=== PATIENT | male | born 1940 | race Caucasian/White ===

== ENCOUNTER 2020-02-09 11:51 | Emergency (ER) | payer MEDICARE, SELFPAY ==
[2020-02-09 12:03] VITALS: BP 142/84; PULSE 84; RESP 16; TEMP 37.1; O2SAT 98; BMI 20.5
--- NOTE | 2020-02-09 12:29 | ED_ITS ---
HPI - General Adult General Chief complaint: General Medical Stated complaint: DEHYDRATION Time Seen by Provider: 02/09/20 12:29 Source: patient and family (Daughter) Limitations: other (Alzheimer's) History of Present Illness HPI narrative: patient is an 79-year-old male with a past medical history of Alzheimer's, HTN and CKD presents with his daughter says the patient has not eaten any food or taken any fluids in 4 days, has not taken his medications in 3 days, is very tired and sleeping most of the day. She states the patient nor ashkan has an unsteady gait but this has gotten worse. She also states he has lost over 20 lb in the past 2-3 months. The patient's did pass away approximately 10 months ago, he states he lives with his other daughter and has no complaints about his living situation. When asked why he has not eaten, he just responds I am not hungry . Denies any pain in his mouth, throat, pain with swallowing, abdominal pain or pain with urination or defecation. Denies any COVID contacts or exposures. daughter states patient has an appointment today with Dr. Sweeney for his CKD, but they had to cancel because he came here instead complaint: dehydration Related Data Home Medications Medication Instructions Recorded Confirmed atenolol 50 mg tablet 50 mg PO DAILY 02/09/20 02/09/20 donepezil 10 mg tablet 10 mg PO BEDTIME 02/09/20 02/09/20 hydrochlorothiazide 25 mg tablet 25 mg PO DAILY 02/09/20 02/09/20 lovastatin 40 mg tablet 40 mg PO DAILY 02/09/20 02/09/20 memantine 5 mg tablet 5 mg PO BID 02/09/20 02/09/20 Previous Rx's Medication Instructions Recorded lisinopril 20 mg tablet 20 mg PO DAILY 90 Days #90 tab 01/25/20 Allergies Allergy/AdvReac Type Severity Reaction Status Date / Time No Known Allergies Allergy Verified 02/09/20 11:13 Review of Systems Review of Systems: see HPI [facility] Past Medical History Attestation statement: The following information was validated with the patient. Source: obtained from family Medical History (Updated 02/09/20 @ 17:42 by TONEY Hammonds) Dementia History of left inguinal hernia Social History Social History Alcohol intake: never Smoking Status: Former smoker Tobacco Type: Cigarette Use of substances other than those prescribed or required for medical reasons: No Advance Directives: Yes (DG) Advance Directives Information Provided: Yes Advance Directives on File: No Physical Exam Vital Signs: Vital Signs: Vital Signs Temp Pulse Resp BP Pulse Ox 02/09/20 15:51 98.4 F 68 16 143/74 H 98 02/09/20 14:00 98.5 F 78 16 165/77 H 100 02/09/20 12:03 98.7 F 84 16 142/84 H 98 Body Mass Index 20.5 Const: General: cooperative and no acute distress Nutritional Appearance: thin Orientation/consciousness: oriented to person, oriented to place and No oriented to time HENMT: Head: Yes normal to inspection General nose exam: Normal external nose present Face and sinus: Yes normal facial exam Mouth: moist mucous membranes Teeth and gingiva: other (wears dentures) Eyes: General: appearance normal, both eyes and all related structures Neck: Neck: Yes normal visual inspection, Yes full ROM and Yes supple Resp: Effort & Inspection: normal respiratory effort and able to speak in complete sentences Auscultation: clear to auscultation bilaterally Cardio: Rate: regular rate Rhythm: regular rhythm Heart sounds: S1 normal heart sound present and S2 normal heart sound present GI: Inspection: Yes normal to inspection Palpation (GI): Soft to palpation and No hepatosplenomegaly present Auscultation: Hypoactive bowel sounds present Skin: General skin exam: decreased turgor and dry skin Neuro: General: oriented to person, oriented to place and No oriented to time Extrem: General: Yes normal to inspection and Yes no pedal edema Psych: Appearance: grossly normal Speech and movement: Normal speech and movement present Affect: Sad affect present Insight: Poor insight present (Psych) ( patient kept wanting to leave, his daughter would reassure him w/success) Judgement: Poor judgement present (Psych) Course Course Course Narrative: 79-year-old male with past medical history Alzheimer's, hypertension, CKD presents with the likely dehydration as patient has not had any foods or fluids in the past 4 days, no meds in the past 3 days, sleeping a lot, past 10 months ago. Will get EKG, UA, labs, start with 1 L NS. 5:30pm spoke at length with patient's daughter, she does not want to do a bed search for [facility], she works for [employer] and is similar with processed this does not feel her father needs the level of care at this time. She states that he told her when they leave here, he will go out to breakfast with her, he stated that if he ate the crackers and laly cy here that he would not be hungry to eat after. She states she thinks he will eat an does not want him to be admitted. We will wait for the results of the UA and likely discharge with antibiotics and a follow-up with his PCP for an evaluation on depression and possible need for medication. patient's daughter understands and agrees with this plan. Medical Decision Making MDM Narrative Medical decision making narrative: patient unable to urinate, will do straight cath, states he will eat and he wants to so I gave him some crackers and laly L for a p.o. challenge. 5:30pm patient finally able to urinate, UA sent. spoke with hospital crisis team, patient has private insurance so he does not qualify for [facility]. Once we have a negative UA, then she can do a bed search for [facility] Lab Data Result diagrams: 02/09/20 13:06 02/09/20 15:50 Labs: Lab Results 02/09/20 02/09/20 02/09/20 Range/Units 13:06 13:06 13:06 WBC 7.5 (4.8-10.8) X10*3/uL RBC 3.85 L (4.60-5.80) X10*6/uL Hgb 12.8 L (14.0-18.0) g/dl Hct 37.9 L (42-52) % MCV 98.4 H (80-98) fL MCH 33.2 H (27.0-33.0) pg MCHC 33.8 (31.0-36.0) g/dl RDW 12.1 (11.0-16.0) % Plt Count 243 (160-400) X10*3/uL MPV 9.9 (9.4-12.4) fL Immature Gran % (Auto) 0.9 H (0.0-0.4) % Neut % (Auto) 72.9 (45-73) % Lymph % (Auto) 18.0 L (20-40) % [place] % (Auto) 7.1 (2-11) % Eos % (Auto) 0.7 (0-4) % Baso % (Auto) 0.4 (0-2) % Lymph # (Auto) 1.3 (1.2-4.9) X10*3/uL [place] # (Auto) 0.5 (0.1-1.2) X10*3/uL Eos # (Auto) 0.1 (0.0-0.4) X10*3/uL Baso # (Auto) 0.0 (0.0-0.2) X10*3/uL Abs Immat Gran (auto) 0.07 H (0.00-0.03) X10*3/uL Absolute Neuts (auto) 5.4 (2.0-8.3) X10*3/uL Absolute Nucleated RBC 0.000 (0.0-0.012) X10*3/uL Nucleated RBC % (auto) 0.0 (0.0-0.2) /100WBC Sodium 141 (135-145) mmol/L Potassium 4.2 (3.3-5.1) mmol/l Chloride 104 (96-108) mmol/L Carbon Dioxide 22 (22-29) mmol/L Anion Gap 19 (12-20) BUN 78 H (9-16) mg/dL Creatinine 4.62 H* (0.5-1.4) mg/dL Estim Creat Clear Calc 10.2 Estimated GFR 12 Random Glucose 134 H (60-115) mg/dL Calcium 9.3 (8.4-10.2) mg/dL Phosphorus 4.5 (2.7-4.5) mg/dL Magnesium 2.2 (1.6-2.6) mg/dL Total Bilirubin 0.9 (0.0-1.0) mg/dL Direct Bilirubin 0.4 (0.0-0.5) mg/dL AST 47 H (5-37) U/L ALT 26 (0-40) U/L Alkaline Phosphatase 75 (39-117) U/L B-Natriuretic Peptide 58 (<100) pg/mL Total Protein 7.3 (6.5-8.0) g/dL Albumin 4.4 (3.5-5.0) g/dL Urine Color Urine Appearance Urine pH (5.0-8.0) Ur Specific [place] (1.005-1.025) Urine Protein (NEG-TRACE) MG/DL Urine Glucose (UA) (NEG) MG/DL Urine Ketones (NEG) MG/DL Urine Blood (NEG) Urine Nitrite (NEG) Ur Leukocyte Esterase (NEG) 02/09/20 02/09/20 Range/Units 15:50 17:34 WBC (4.8-10.8) X10*3/uL RBC (4.60-5.80) X10*6/uL Hgb (14.0-18.0) g/dl Hct (42-52) % MCV (80-98) fL MCH (27.0-33.0) pg MCHC (31.0-36.0) g/dl RDW (11.0-16.0) % Plt Count (160-400) X10*3/uL MPV (9.4-12.4) fL Immature Gran % (Auto) (0.0-0.4) % Neut % (Auto) (45-73) % Lymph % (Auto) (20-40) % [place] % (Auto) (2-11) % Eos % (Auto) (0-4) % Baso % (Auto) (0-2) % Lymph # (Auto) (1.2-4.9) X10*3/uL [place] # (Auto) (0.1-1.2) X10*3/uL Eos # (Auto) (0.0-0.4) X10*3/uL Baso # (Auto) (0.0-0.2) X10*3/uL Abs Immat Gran (auto) (0.00-0.03) X10*3/uL Absolute Neuts (auto) (2.0-8.3) X10*3/uL Absolute Nucleated RBC (0.0-0.012) X10*3/uL Nucleated RBC % (auto) (0.0-0.2) /100WBC Sodium 143 (135-145) mmol/L Potassium 4.0 (3.3-5.1) mmol/l Chloride 110 H (96-108) mmol/L Carbon Dioxide 20 L (22-29) mmol/L Anion Gap 17 (12-20) BUN 72 H (9-16) mg/dL Creatinine 3.82 H (0.5-1.4) mg/dL Estim Creat Clear Calc 12.3 Estimated GFR 15 Random Glucose 94 (60-115) mg/dL Calcium 7.9 L (8.4-10.2) mg/dL Phosphorus (2.7-4.5) mg/dL Magnesium (1.6-2.6) mg/dL Total Bilirubin (0.0-1.0) mg/dL Direct Bilirubin (0.0-0.5) mg/dL AST (5-37) U/L ALT (0-40) U/L Alkaline Phosphatase (39-117) U/L B-Natriuretic Peptide (<100) pg/mL Total Protein (6.5-8.0) g/dL Albumin (3.5-5.0) g/dL Urine Color YELLOW Urine Appearance CLEAR Urine pH 5.5 (5.0-8.0) Ur Specific [place] 1.025 (1.005-1.025) Urine Protein TRACE (NEG-TRACE) MG/DL Urine Glucose (UA) NEG (NEG) MG/DL Urine Ketones NEG (NEG) MG/DL Urine Blood 1+ H (NEG) Urine Nitrite NEG (NEG) Ur Leukocyte Esterase NEG (NEG) ECG Data Attestation: I personally reviewed and interpreted this ECG as follows: Prior ECG tracings: available for review Interpretation: NSR rate 79 BP M MS interval 200 MS, QRS 88, QT 400, QTC 458. reviewed by Dr. Ohara as well Discharge Plan Discharge Clinical Impression: Dehydration, Depression determined by examination, Refuses to eat Patient Disposition: Home, Self-Care Instructions: Depression in Older Adults (ED) Additional Instructions: As discussed, please be sure to follow-up with her primary care physician to seek help with your depression. There are many options for therapy and medications. Please also be sure to eat regularly, Pedialyte or Ensure are good options. Please be sure to take your medications on a daily basis. Also, is important to follow-up with the photo tube assembler, Dr. Sweeney, for your chronic kidney disease. Prescriptions: No Action lisinopril 20 mg tablet 20 mg PO DAILY 90 Days Qty: 90 RF: 4 memantine 5 mg tablet 5 mg PO BID RF: 0 atenolol 50 mg tablet 50 mg PO DAILY RF: 0 hydrochlorothiazide 25 mg tablet 25 mg PO DAILY RF: 0 lovastatin 40 mg tablet 40 mg PO DAILY RF: 0 donepezil 10 mg tablet 10 mg PO BEDTIME RF: 0
--- NOTE | 2020-02-09 12:51 | ECG_ITS ---
Test Reason : AMS Blood Pressure : / mmHG Vent. Rate : 079 BPM Atrial Rate : 079 BPM P-R Int : 200 ms QRS Dur : 088 ms QT Int : 400 ms P-R-T Axes : 000 028 028 degrees QTc Int : 458 ms Normal sinus rhythm Normal ECG When compared with ECG of 09-JUL-2010 13:02, Heart rate has increased Referred By: Jolene Valente Electronically Signed By:BRANDEN MEDEL MD
[2020-02-09] MEDS: 0.9 % Sodium Chloride 1,000 ML 999 ML IVCONT ×2 (13:07→14:28)
[2020-02-09 13:12] LABS: MANUAL DIFF FLAG NO
[2020-02-09 13:19] LABS: Basophils Percent Auto 0.4 % (0-2); Eosinophils Absolute Auto 0.1 X10*3/uL (0.0-0.4); Eosinophils Percent Auto 0.7 % (0-4); Hematocrit 37.9 % (42-52); Hemoglobin 12.8 g/dl (14.0-18.0); Imm Gran Abs Auto 0.07 X10*3/uL (0.00-0.03); Imm Gran Pct Auto 0.9 % (0.0-0.4); Lymphocytes Absolute Auto 1.3 X10*3/uL (1.2-4.9); Mean Corpuscular HGB Conc 33.8 g/dl (31.0-36.0); Mean Corpuscular Hemoglobin 33.2 pg (27.0-33.0); Mean Corpuscular Volume 98.4 fL (80-98); Mean Platelet Volume 9.9 fL (9.4-12.4); Monocytes Absolute Auto 0.5 X10*3/uL (0.1-1.2); Monocytes Percent Auto 7.1 % (2-11); Neutrophils Absolute Auto 5.4 X10*3/uL (2.0-8.3); Neutrophils Percent Auto 72.9 % (45-73); Platelet Count 243 X10*3/uL (160-400); Red Blood Count 3.85 X10*6/uL (4.60-5.80); Red Cell Distribution Width 12.1 % (11.0-16.0); White Blood Count 7.5 X10*3/uL (4.8-10.8)
[2020-02-09 13:59] LABS: B Type Natriuretic Peptide 58 pg/mL (<100)
[2020-02-09 14:00] VITALS: BP 165/77; PULSE 78; RESP 16; TEMP 36.9; O2SAT 100
[2020-02-09 14:00] LABS: Alanine Aminotransferase 26 U/L (0-40); Albumin Level 4.4 g/dL (3.5-5.0); Alkaline Phosphatase 75 U/L (39-117); Anion Gap 19 (12-20); Aspartate Amino Transferase 47 U/L (5-37); Bilirubin Direct 0.4 mg/dL (0.0-0.5); Bilirubin Total 0.9 mg/dL (0.0-1.0); Blood Urea Nitrogen 78 mg/dL (9-16); Calcium 9.3 mg/dL (8.4-10.2); Carbon Dioxide 22 mmol/L (22-29); Chloride 104 mmol/L (96-108); Glucose Random 134 mg/dL (60-115); Magnesium 2.2 mg/dL (1.6-2.6); Phosphorus 4.5 mg/dL (2.7-4.5); Potassium 4.2 mmol/l (3.3-5.1); Sodium 141 mmol/L (135-145); Total Protein 7.3 g/dL (6.5-8.0)
[2020-02-09 14:02] LABS: Creatinine Clr Calc Pharmacy 10.2; Estimated Glomerular Filt Rate 12
[2020-02-09 15:51] VITALS: BP 143/74; PULSE 68; RESP 16; TEMP 36.9; O2SAT 98
[2020-02-09 16:35] LABS: Anion Gap 17 (12-20); Blood Urea Nitrogen 72 mg/dL (9-16); Calcium 7.9 mg/dL (8.4-10.2); Carbon Dioxide 20 mmol/L (22-29); Chloride 110 mmol/L (96-108); Creatinine Clr Calc Pharmacy 12.3; Estimated Glomerular Filt Rate 15; Glucose Random 94 mg/dL (60-115); Sodium 143 mmol/L (135-145)
[2020-02-09 17:44] LABS: Glucose Urine UA NEG (NEG); Leukocyte Esterase Urine NEG (NEG); Nitrite Urine NEG (NEG); PH 5.5 (5.0-8.0); Specific Gravity - Urine 1.025 (1.005-1.025); Urine Blood 1+ (NEG); Urine Ketones NEG (NEG); Urine Protein TRACE MG/DL (NEG-TRACE)
[2020-02-09 17:49] LABS: Appearance Urine CLEAR; Color Urine YELLOW
[2020-02-09 18:00] LABS: Bacteria Urine TRACE /LPF; Squamous Epithelial Cell Urine TRACE /LPF
== END 2020-02-09 18:01 | disposition home or self-care (01) ==
PROVIDERS: Physician Assistant; Emergency Provider Emergency Medicine; PCP Internal Medicine
DX: E86.0 Dehydration (principal); F32.9 Major depressive disorder, single episode, unspecified; I12.9 Hypertensive chronic kidney disease with stage 1 through stage 4 chronic kidney disease, or unspecified chronic kidney disease; N18.9 Chronic kidney disease, unspecified; Z79.899 Other long term (current) drug therapy; Z87.891 Personal history of nicotine dependence
CPT/HCPCS: 36415; 80048; 80076; 81001; 83735; 83880; 84100; 85025; 93005; 96360; 96361; 99284

== ENCOUNTER 2020-02-23 08:18 | Outpatient (REF) | payer MEDICARE, SELFPAY ==
--- NOTE | 2020-02-23 08:41 | CT_ITS ---
EXAMINATION: CT HEAD WITHOUT CONTRAST CLINICAL INFORMATION: Weakness. COMPARISON: None. TECHNIQUE: Contiguous axial imaging was performed from the skull base to vertex without intravenous administration of contrast. This CT examination was performed using dose optimization techniques as appropriate, variously including the following: *Automated exposure control *Adjustment of mA and/or kV according to patient size (this includes techniques or standardized protocols for targeted exams where dose is matched to indication/reason for exam; i.e. extremities or head) *Use of iterative reconstruction technique DLP: 683 mGy-cm. FINDINGS: There is no evidence of acute intracranial hemorrhage or territorial infarction. No abnormal mass effect or midline shift is seen. [place] to white matter differentiation is well preserved. No extra-axial fluid collections are identified. The lateral ventricles are enlarged but symmetrical. There is bilateral prominence of cortical sulci. The osseous structures and soft tissues are normal. The mastoid air cells and visualized portions of the paranasal sinuses are well aerated. CT/CT head/brain wo con IMPRESSION: No acute intracranial process seen. Age-related cerebral volume loss.
--- NOTE | 2020-02-23 08:41 | XR_ITS ---
EXAMINATION: XR ELBOW, RIGHT CLINICAL INFORMATION: M25.529 - Pain in unspecified elbow COMPARISON: None. TECHNIQUE: Right elbow is imaged in 4 views. FINDINGS: There is no fracture, dislocation, destructive process, or visible elbow capsular effusion. Bony mineralization is within normal. There is no joint narrowing or erosive change. There is mild spurring involving the medial and lateral epicondyles and the olecranon. Some fine mineralization also present in region of distal triceps tendon. XR/XR elbow RT 2V IMPRESSION: Mild spurring medial and lateral epicondyles and olecranon.
[2020-02-23 09:40] LABS: Anion Gap 15 (12-20); Blood Urea Nitrogen 52 mg/dL (9-16); Calcium 8.2 mg/dL (8.4-10.2); Carbon Dioxide 23 mmol/L (22-29); Chloride 104 mmol/L (96-108); Estimated Glomerular Filt Rate 16; Glucose Random 140 mg/dL (60-115); Potassium 4.4 mmol/l (3.3-5.1); Sodium 138 mmol/L (135-145)
[2020-02-23 09:54] LABS: Uric Acid 10.4 mg/dL (3.4-7.0)
== END 2020-02-23 08:19 | disposition home or self-care (01) ==
LOC: HO.CT 08:18
PROVIDERS: Visit Provider Internal Medicine
DX: R53.1 Weakness (principal); M25.521 Pain in right elbow
CPT/HCPCS: 70450; 73070; 80048; 84550

== ENCOUNTER 2020-03-26 15:54 | Outpatient (REF) | payer MEDICARE, SELFPAY ==
[2020-03-26 17:15] LABS: Glucose Urine UA NEG (NEG); Leukocyte Esterase Urine NEG (NEG); Nitrite Urine NEG (NEG); PH 6.5 (5.0-8.0); Urine Blood TRACE (NEG); Urine Ketones NEG (NEG); Urine Protein TRACE MG/DL (NEG-TRACE)
[2020-03-26 17:20] LABS: Appearance Urine CLEAR; Color Urine YELLOW
[2020-03-26 17:27] LABS: Albumin Level 4.4 g/dL (3.5-5.0); Anion Gap 17 (12-20); Blood Urea Nitrogen 36 mg/dL (9-16); Calcium 9.2 mg/dL (8.4-10.2); Carbon Dioxide 23 mmol/L (22-29); Chloride 104 mmol/L (96-108); Estimated Glomerular Filt Rate 21; Magnesium 2.1 mg/dL (1.6-2.6); Potassium 4.6 mmol/l (3.3-5.1); Sodium 139 mmol/L (135-145)
[2020-03-26 17:30] LABS: RBC Urine 0-2 /HPF (0); Squamous Epithelial Cell Urine TRACE /LPF; WBC Urine 0 /HPF (0-4)
[2020-03-26 17:39] LABS: Creatinine Urine 69.79 mg/dL; Creatinine Urine 71.69 mg/dL; Protein/Creatinine Ratio, Ur 0.57 (<0.2); Total Protein Urine Random 40 mg/dL (<12)
[2020-03-26 17:49] LABS: Vitamin D 25-OH Total 52.9 ng/mL (>30)
[2020-03-26 19:03] LABS: Renal w Reflex Lab Use Only Order verified
[2020-03-27 10:52] LABS: Complement C3 113 mg/dL
[2020-03-28 08:03] LABS: HBc Num1 0.09 S/CO (0.00-0.79); HBsAGNum1 0.18 S/CO (0.00-0.99); Hepatitis B Core Antibody Nonreactive (Nonreactive); Hepatitis B Surface Antigen Negative (Negative)
[2020-03-28 08:23] LABS: HBS Num1 0.49 mIU/mL (0-7.99); ~HepC Num1 0.14 S/CO (0.00-0.79); ~Hepatitis B Surface Antibody NONREACTIVE (Nonreactive); ~Hepatitis C Antibody Nonreactive (Nonreactive)
[2020-03-28 11:26] LABS: ~Hepatitis A Antibody IgM GRAYZONE (Nonreactive)
[2020-03-28 16:58] LABS: Calcium (PTHI) 9.5 mg/dL (8.6-10.3); PTHI 126 pg/mL (14-64)
[2020-03-28 20:53] LABS: Anti Nuclear Antibody Pattern Nuclear, Homogeneous; Anti Nuclear Antibody Screen POSITIVE (NEGATIVE)
== END 2020-03-26 15:55 | disposition home or self-care (01) ==
LOC: HO.LAB 15:54
PROVIDERS: PCP Internal Medicine; Visit Provider Internal Medicine Nephrology
DX: E78.5 Hyperlipidemia, unspecified (principal); N28.9 Disorder of kidney and ureter, unspecified; I12.9 Hypertensive chronic kidney disease with stage 1 through stage 4 chronic kidney disease, or unspecified chronic kidney disease; N18.9 Chronic kidney disease, unspecified; E55.9 Vitamin D deficiency, unspecified
CPT/HCPCS: 36415; 80051; 81001; 82040; 82043; 82306; 82310; 82565; 83735; 83970; 84100; 84156; 84520; 86038; 86039; 86160; 86704; 86706; 86709; 86803; 87340

== ENCOUNTER 2020-04-19 14:12 | Outpatient (REF) | payer MEDICARE, SELFPAY ==
--- NOTE | 2020-04-19 14:34 | US_ITS ---
EXAMINATION: US RETROPERITONEAL COMPLETE (RENAL) CLINICAL INFORMATION: Disorder of kidney and ureter. COMPARISON: Ultrasound renals only dated 12/29/2019. TECHNIQUE: Real-time imaging of the kidneys and bladder. FINDINGS: RIGHT KIDNEY: 9.21 x 4.24 x 5.3 cm (SAG x AP x TRV). There is diffuse renal cortical thinning with increased renal cortical echogenicity suggesting medical renal disease. There is a 1.8 cm simple cyst in the right mid kidney. No renal calculi or hydronephrosis. LEFT KIDNEY: 8.1 x 4.6 x 4.3 cm (SAG x AP x TRV). There is diffuse renal cortical thinning with increased renal cortical echogenicity suggesting medical renal disease. No calculi or focal parenchymal lesions. No hydronephrosis. BLADDER: Partially distended. Right ureteral jet is demonstrated; left is not. Prevoid bladder volume is 115 mL. Postvoid bladder volume is 7.22 mL. Prostate volume is 18.6 mL. US/US retroperitoneal comp IMPRESSION: Bilateral renal cortical thinning with increased renal cortical echogenicity consistent with medical renal disease. No hydronephrosis.
== END 2020-04-19 14:13 | disposition home or self-care (01) ==
LOC: HO.HMGCX 14:12
PROVIDERS: PCP Internal Medicine; Visit Provider Internal Medicine Nephrology
DX: I12.9 Hypertensive chronic kidney disease with stage 1 through stage 4 chronic kidney disease, or unspecified chronic kidney disease (principal); N18.9 Chronic kidney disease, unspecified
CPT/HCPCS: 76770

== ENCOUNTER 2020-05-23 14:32 | Outpatient (REF) | payer MEDICARE, SELFPAY ==
[2020-05-23 16:41] LABS: MANUAL DIFF FLAG NO
[2020-05-23 16:45] LABS: Basophils Percent Auto 0.4 % (0-2); Eosinophils Absolute Auto 0.1 X10*3/uL (0.0-0.4); Hematocrit 36.2 % (42-52); Hemoglobin 11.8 g/dl (14.0-18.0); Imm Gran Abs Auto 0.05 X10*3/uL (0.00-0.03); Imm Gran Pct Auto 0.6 % (0.0-0.4); Lymphocytes Absolute Auto 1.6 X10*3/uL (1.2-4.9); Lymphocytes Percent Auto 20.3 % (20-40); Mean Corpuscular HGB Conc 32.6 g/dl (31.0-36.0); Mean Corpuscular Hemoglobin 33.1 pg (27.0-33.0); Mean Corpuscular Volume 101.7 fL (80-98); Mean Platelet Volume 10.5 fL (9.4-12.4); Monocytes Absolute Auto 0.5 X10*3/uL (0.1-1.2); Monocytes Percent Auto 5.9 % (2-11); Neutrophils Absolute Auto 5.7 X10*3/uL (2.0-8.3); Neutrophils Percent Auto 71.8 % (45-73); Platelet Count 217 X10*3/uL (160-400); Red Blood Count 3.56 X10*6/uL (4.60-5.80); Red Cell Distribution Width 12.7 % (11.0-16.0); White Blood Count 7.9 X10*3/uL (4.8-10.8)
[2020-05-23 16:49] LABS: Prothrombin Time 11.8 SEC (10.8-13.0)
[2020-05-23 17:10] LABS: Alanine Aminotransferase 18 U/L (0-40); Albumin Level 4.4 g/dL (3.5-5.0); Alkaline Phosphatase 70 U/L (39-117); Anion Gap 17 (12-20); Aspartate Amino Transferase 34 U/L (5-37); Bilirubin Total 0.6 mg/dL (0.0-1.0); Blood Urea Nitrogen 40 mg/dL (9-16); Calcium 8.8 mg/dL (8.4-10.2); Carbon Dioxide 23 mmol/L (22-29); Chloride 105 mmol/L (96-108); Estimated Glomerular Filt Rate 19; Glucose Random 144 mg/dL (60-115); Potassium 4.5 mmol/L (3.3-5.1); Sodium 140 mmol/L (135-145); Total Protein 7.1 g/dL (6.5-8.0)
[2020-05-23 17:10] LABS: Glucose Urine UA NEG (NEG); Leukocyte Esterase Urine NEG (NEG); Nitrite Urine NEG (NEG); PH 5.5 (5.0-8.0); Urine Blood TRACE (NEG); Urine Ketones NEG (NEG); Urine Protein TRACE MG/DL (NEG-TRACE)
[2020-05-23 17:13] LABS: Appearance Urine CLEAR; Color Urine YELLOW
[2020-05-23 17:29] LABS: Mucus Urine TRACE /LPF; WBC Urine 0 /HPF (0-4)
== END 2020-05-23 14:33 | disposition home or self-care (01) ==
LOC: HO.HMGCLDS 14:32
PROVIDERS: PCP Internal Medicine; Visit Provider Nurse Practitioner Family
DX: R58 Hemorrhage, not elsewhere classified (principal)
CPT/HCPCS: 36415; 80053; 81001; 81003; 85025; 85610

== ENCOUNTER 2020-10-05 12:28 | Emergency (ER) | payer MEDICARE, SELFPAY ==
[2020-10-05 12:59] VITALS: BP 112/70; PULSE 66; RESP 16; TEMP 36.8; O2SAT 96
[2020-10-05 13:46] LABS: MANUAL DIFF FLAG NO
[2020-10-05 13:49] LABS: Basophils Percent Auto 0.3 % (0-2); Eosinophils Absolute Auto 0.1 X10*3/uL (0.0-0.4); Eosinophils Percent Auto 1.6 % (0-4); Hematocrit 33.4 % (42-52); Imm Gran Abs Auto 0.03 X10*3/uL (0.00-0.03); Imm Gran Pct Auto 0.5 % (0.0-0.4); Lymphocytes Percent Auto 15.8 % (20-40); Mean Corpuscular HGB Conc 32.9 g/dl (31.0-36.0); Mean Corpuscular Hemoglobin 32.8 pg (27.0-33.0); Mean Corpuscular Volume 99.7 fL (80-98); Mean Platelet Volume 9.6 fL (9.4-12.4); Monocytes Absolute Auto 0.5 X10*3/uL (0.1-1.2); Monocytes Percent Auto 8.1 % (2-11); Neutrophils Absolute Auto 4.5 X10*3/uL (2.0-8.3); Neutrophils Percent Auto 73.7 % (45-73); Platelet Count 191 X10*3/uL (160-400); Red Blood Count 3.35 X10*6/uL (4.60-5.80); Red Cell Distribution Width 12.6 % (11.0-16.0); White Blood Count 6.1 X10*3/uL (4.8-10.8)
[2020-10-05 14:28] LABS: Alanine Aminotransferase 10 U/L (0-40); Albumin Level 4.3 g/dL (3.5-5.0); Alkaline Phosphatase 67 U/L (39-117); Anion Gap 15 (12-20); Aspartate Amino Transferase 25 U/L (5-37); Bilirubin Total 0.6 mg/dL (0.0-1.0); Blood Urea Nitrogen 49 mg/dL (9-16); Calcium 9.4 mg/dL (8.4-10.2); Carbon Dioxide 24 mmol/L (22-29); Chloride 106 mmol/L (96-108); Creatinine Clr Calc Pharmacy 11.1; Estimated Glomerular Filt Rate 14; Glucose Random 126 mg/dL (60-115); Potassium 4.4 mmol/L (3.3-5.1); Sodium 141 mmol/L (135-145); Total Protein 6.9 g/dL (6.5-8.0)
== END 2020-10-05 16:08 | disposition left against medical advice (07) ==
PROVIDERS: Emergency Provider Emergency Medicine; PCP Internal Medicine
DX: R53.1 Weakness (principal)
CPT/HCPCS: 36415; 80053; 85025; 99282; 99283

== ENCOUNTER 2020-11-14 08:17 | Outpatient (REF) | payer MEDICARE, SELFPAY ==
[2020-11-14 09:00] LABS: MANUAL DIFF FLAG NO
[2020-11-14 09:05] LABS: Basophils Percent Auto 0.6 % (0-2); Eosinophils Absolute Auto 0.2 X10*3/uL (0.0-0.4); Hematocrit 32.2 % (42-52); Hemoglobin 10.6 g/dl (14.0-18.0); Imm Gran Abs Auto 0.05 X10*3/uL (0.00-0.03); Imm Gran Pct Auto 0.9 % (0.0-0.4); Lymphocytes Absolute Auto 1.6 X10*3/uL (1.2-4.9); Lymphocytes Percent Auto 29.2 % (20-40); Mean Corpuscular HGB Conc 32.9 g/dl (31.0-36.0); Mean Corpuscular Hemoglobin 32.7 pg (27.0-33.0); Mean Corpuscular Volume 99.4 fL (80-98); Mean Platelet Volume 9.8 fL (9.4-12.4); Monocytes Absolute Auto 0.5 X10*3/uL (0.1-1.2); Monocytes Percent Auto 8.7 % (2-11); Neutrophils Absolute Auto 3.1 X10*3/uL (2.0-8.3); Neutrophils Percent Auto 57.6 % (45-73); Platelet Count 186 X10*3/uL (160-400); Red Blood Count 3.24 X10*6/uL (4.60-5.80); Red Cell Distribution Width 14.1 % (11.0-16.0); White Blood Count 5.3 X10*3/uL (4.8-10.8)
[2020-11-14 09:26] LABS: Anion Gap 13 (12-20); Blood Urea Nitrogen 40 mg/dL (9-16); Calcium 9.6 mg/dL (8.4-10.2); Carbon Dioxide 24 mmol/L (22-29); Chloride 108 mmol/L (96-108); Estimated Glomerular Filt Rate 17; Phosphorus 3.7 mg/dL (2.7-4.5); Sodium 141 mmol/L (135-145)
[2020-11-14 09:42] LABS: Glucose Urine UA NEG (NEG); Leukocyte Esterase Urine NEG (NEG); Nitrite Urine NEG (NEG); Specific Gravity - Urine 1.025 (1.005-1.025); Urine Blood NEG (NEG); Urine Ketones NEG (NEG); Urine Protein TRACE MG/DL (NEG-TRACE)
[2020-11-14 09:47] LABS: Appearance Urine CLEAR; Color Urine YELLOW
[2020-11-14 09:47] LABS: Vitamin D 25-OH Total 58.9 ng/mL (>30)
[2020-11-14 10:16] LABS: Creatinine Urine 174.94 mg/dL; Microalbum/Creatinine Ratio Ur 19.4 ug/mg cr; Total Protein Urine Random 35 mg/dL (<12)
[2020-11-15 13:37] LABS: Calcium (PTHI) 9.8 mg/dL (8.6-10.3); PTHI 60 pg/mL (14-64)
== END 2020-11-14 08:18 | disposition home or self-care (01) ==
LOC: HO.LAB 08:17
PROVIDERS: PCP Internal Medicine; Visit Provider Internal Medicine Nephrology
DX: I12.9 Hypertensive chronic kidney disease with stage 1 through stage 4 chronic kidney disease, or unspecified chronic kidney disease (principal); N18.4 Chronic kidney disease, stage 4 (severe); N25.0 Renal osteodystrophy; E78.5 Hyperlipidemia, unspecified
CPT/HCPCS: 36415; 80051; 81003; 82040; 82043; 82306; 82310; 82565; 83735; 83970; 84100; 84156; 84520; 85025; 87086

== ENCOUNTER 2020-12-26 13:35 | Outpatient (REF) | payer MEDICARE, SELFPAY ==
[2020-12-26 14:20] LABS: MANUAL DIFF FLAG NO
[2020-12-26 14:24] LABS: Basophils Percent Auto 0.5 % (0-2); Eosinophils Absolute Auto 0.1 X10*3/uL (0.0-0.4); Eosinophils Percent Auto 1.7 % (0-4); Hematocrit 33.8 % (42-52); Hemoglobin 10.9 g/dl (14.0-18.0); Imm Gran Abs Auto 0.06 X10*3/uL (0.00-0.03); Imm Gran Pct Auto 0.9 % (0.0-0.4); Lymphocytes Absolute Auto 1.4 X10*3/uL (1.2-4.9); Lymphocytes Percent Auto 22.3 % (20-40); Mean Corpuscular HGB Conc 32.2 g/dl (31.0-36.0); Mean Corpuscular Hemoglobin 32.3 pg (27.0-33.0); Mean Corpuscular Volume 100.3 fL (80-98); Mean Platelet Volume 10.1 fL (9.4-12.4); Monocytes Absolute Auto 0.5 X10*3/uL (0.1-1.2); Monocytes Percent Auto 7.5 % (2-11); Neutrophils Absolute Auto 4.3 X10*3/uL (2.0-8.3); Neutrophils Percent Auto 67.1 % (45-73); Platelet Count 214 X10*3/uL (160-400); Red Blood Count 3.37 X10*6/uL (4.60-5.80); Red Cell Distribution Width 13.4 % (11.0-16.0); White Blood Count 6.4 X10*3/uL (4.8-10.8)
[2020-12-26 14:43] LABS: Albumin Level 4.1 g/dL (3.5-5.0); Anion Gap 19 (12-20); Blood Urea Nitrogen 41 mg/dL (9-16); Carbon Dioxide 19 mmol/L (22-29); Chloride 107 mmol/L (96-108); Estimated Glomerular Filt Rate 15; Magnesium 2.2 mg/dL (1.6-2.6); Phosphorus 4.4 mg/dL (2.7-4.5); Potassium 4.2 mmol/L (3.3-5.1); Sodium 141 mmol/L (135-145)
[2020-12-26 15:05] LABS: Vitamin D 25-OH Total 57.9 ng/mL (>30)
[2020-12-30 06:31] LABS: Calcium (PTHI) 9.2 mg/dL (8.6-10.3); PTHI 154 pg/mL (14-64)
[2021-01-02 16:55] LABS: BUN 42 mg/dL (7-25); BUN Clearance 3 mL/min (41-68); Urea Nitrogen, Urine 0 g/24 h (6-17)
== END 2020-12-26 13:36 | disposition home or self-care (01) ==
LOC: HO.LAB 13:35
PROVIDERS: PCP Internal Medicine; Visit Provider Internal Medicine Nephrology
DX: I12.9 Hypertensive chronic kidney disease with stage 1 through stage 4 chronic kidney disease, or unspecified chronic kidney disease (principal); N18.4 Chronic kidney disease, stage 4 (severe); N25.0 Renal osteodystrophy
CPT/HCPCS: 36415; 80051; 82040; 82306; 82310; 82565; 83735; 83970; 84100; 84520; 84545; 85025

== ENCOUNTER 2020-12-27 16:03 | Outpatient (REF) | payer MEDICARE, SELFPAY ==
[2020-12-27 16:31] LABS: Appearance Urine CLEAR; Color Urine YELLOW; Glucose Urine UA NEG (NEG); Leukocyte Esterase Urine NEG (NEG); Nitrite Urine NEG (NEG); PH 6.5 (5.0-8.0); Urine Blood NEG (NEG); Urine Ketones NEG (NEG); Urine Protein 1+ MG/DL (NEG-TRACE)
[2020-12-27 16:46] LABS: Creatinine Urine 125.54 mg/dL; Microalbum/Creatinine Ratio Ur 22.3 ug/mg cr; Total Protein Urine Random 31 mg/dL (<12)
[2020-12-27 17:23] LABS: Amorphous Sediment Urine 1+ /LPF; RBC Urine 0-2 /HPF (0); WBC Urine 0-2 /HPF (0-4)
== END 2020-12-27 16:04 | disposition home or self-care (01) ==
LOC: HO.LNP 16:03
PROVIDERS: Visit Provider Internal Medicine Nephrology
DX: I12.9 Hypertensive chronic kidney disease with stage 1 through stage 4 chronic kidney disease, or unspecified chronic kidney disease (principal); N18.4 Chronic kidney disease, stage 4 (severe); N25.0 Renal osteodystrophy
CPT/HCPCS: 81001; 82043; 84156; 87086

== ENCOUNTER 2021-03-11 14:01 | Emergency (ER) | payer MEDICARE, SELFPAY ==
[2021-03-11 16:11] VITALS: BP 151/82; PULSE 60; RESP 16; O2SAT 98; BMI 41.6
--- NOTE | 2021-03-11 16:52 | ED_ITS ---
HPI - Nausea/Vomiting/Diarrhea General Chief complaint: Nausea/Vomiting/Diarrhea Stated complaint: VOMITING Time Seen by Provider: 03/11/21 16:52 Source: patient Mode of arrival: ambulatory Limitations: no limitations History of Present Illness HPI Narrative: patient with vomiting for the past 3 days but he has stage 4 kidney failure. patient has refused kidney failure. MD elicited complaint: nausea and vomiting Onset (ago): day(s) Associated nausea: Yes Associated symptoms: malaise, nausea/vomiting and weakness Related Data Home Medications Medication Instructions Recorded Confirmed memantine 5 mg tablet 5 mg PO BID 02/09/20 01/18/21 fish oil-dha-epa 1,200 mg-144 1 cap PO DAILY cap 06/18/20 01/18/21 mg-216 mg capsule multivitamin (Daily Multi-Vitamin) 1 tab PO DAILY 06/18/20 01/18/21 amlodipine 5 mg tablet 5 mg PO DAILY 10/05/20 01/18/21 lisinopril 5 mg tablet 5 mg PO DAILY 01/18/21 01/18/21 lovastatin 40 mg tablet 40 mg PO DAILY tab 01/18/21 01/18/21 Previous Rx's Medication Instructions Recorded atenolol 50 mg tablet 50 mg PO DAILY #90 tab 04/03/20 hydrochlorothiazide 25 mg tablet 25 mg PO DAILY #90 tab 10/30/20 trazodone 50 mg tablet 100 mg PO BEDTIME PRN #90 tab 11/12/20 cephalexin 500 mg tablet 500 mg PO Q12H 7 Days #14 tab 01/18/21 Allergies Allergy/AdvReac Type Severity Reaction Status Date / Time No Known Allergies Allergy Verified 01/18/21 13:20 Review of Systems Constitutional: Constitutional: Reports no additional constitutional complaints Eyes: Eyes: Reports no additional eye complaints ENT: Denies dizziness Cardiovascular: Cardiovascular: Reports no additional cardiovascular com plaints Respiratory: Respiratory: Reports as per HPI Gastrointestinal: Gastrointestinal: Reports nausea Musculoskeletal: Musculoskeletal: Reports no additional musculoskeletal complaints Integumentary/Breasts: Skin/Breast: Denies rash Neurologic: Reports system reviewed and no additional complaints, except as documented, Denies dizziness and Denies Sensory deficit (Neuro) Psychiatric: Psychiatric: Denies anxiety PMFSH Past Medical History Medical History (Updated 03/11/21 @ 17:22 by Arnoldo Booth MD) Bleeding Dehydration Dementia Elbow pain History of left inguinal hernia Hypertension Surgical History (Updated 01/18/21 @ 14:56 by JOSIE Dubois) H/O rectal polypectomy History of colonoscopy History of inguinal hernia repair Family History Family History Father Medical history unknown Mother Medical history unknown Brother No problems noted. Son No problems noted. Son No problems noted. Daughter No problems noted. Daughter No problems noted. Daughter No problems noted. Daughter No problems noted. Social History Social History Housing: House Alcohol intake: never Patient Tobacco Use Status: Former Tobacco user Use of substances other than those prescribed or required for medical reasons: No Advance Directives: Yes Advance Directives on File: Yes Advance Directives Date on File: 01/23/21 service: Yes Current occupational status: retired Physical Exam Vital Signs: Vital Signs: Last Vital Signs Pulse 60 03/11/21 16:11 Resp 16 03/11/21 16:11 BP 151/82 H 03/11/21 16:11 Pulse Ox 98 03/11/21 16:11 Body Mass Index 41.6 Const: Other: Unkept male in no acute distress Nutritional Appearance: average body habitus Orientation/consciousness: oriented to person and patient oriented x3 Limitations: no limitations HENMT: Head: Yes normal to inspection Ears: external ears normal General nose exam: Normal external nose present Mouth: Normal oral and palatal mucosa present and oropharynx normal Throat: Yes posterior oropharynx normal Eyes: General: appearance normal, both eyes and all related structures Neck: Other: supple Neck: Yes normal visual inspection Chest: Chest palpation & inspection: normal inspection of the chest Resp: Auscultation: clear to auscultation bilaterally Cardio: Jugular venous distension: no JVD Rate: regular rate Rhythm: regular rhythm Heart sounds: S1 normal heart sound present and S2 normal heart sound present GI: Inspection: Yes normal to inspection Palpation (GI): Soft to palpation, nontender and No hepatosplenomegaly present Auscultation: normal bowel sounds : General: Yes no CVA tenderness Back/Spine/Pelvis: Back: no CVA tenderness Skin: General skin exam: no rashes or lesions noted Neuro: General: oriented to person and patient oriented x3 Cranial nerves: Yes CN's II-XII intact bilaterally Motor exam (neuro): 5/5 motor strength present throughout Sensory Exam: No Sensory deficit (Neuro) Extrem: General: Yes normal to inspection Psych: Appearance: grossly normal Course Reevaluation(s) Reevaluation #1: patient in no acute distress, ambulated in, has dementia, no evidence of fluid overload, will sign out to Dr. Dang. Time: 17:20 MDM - Nausea/Vomiting/Diarrhea Lab Data Result diagrams: 03/11/21 17:10 03/11/21 17:10 Discharge Plan Discharge Clinical Impression: Weakness, Vomiting, Renal failure Prescriptions: No Action atenolol 50 mg tablet 50 mg PO DAILY Qty: 90 RF: 8 hydrochlorothiazide 25 mg tablet 25 mg PO DAILY Qty: 90 RF: 8 trazodone 50 mg tablet 100 mg PO BEDTIME PRN (Reason: insomnia) Qty: 90 RF: 8 memantine 5 mg tablet 5 mg PO BID RF: 0 fish oil-dha-epa 1,200-144-216 mg capsule 1 cap PO DAILY RF: 0 multivitamin [Daily Multi-Vitamin] Tablet 1 tab PO DAILY RF: 0 lisinopril 5 mg tablet 5 mg PO DAILY RF: 0 lovastatin 40 mg tablet 40 mg PO DAILY RF: 0 cephalexin 500 mg tablet 500 mg PO Q12H 7 Days Qty: 14 RF: 0 amlodipine 5 mg tablet 5 mg PO DAILY RF: 0
[2021-03-11] MEDS: 0.9 % Sodium Chloride 1,000 ML 100 ML IVCONT (17:12)
[2021-03-11] MEDS: ondansetron HCL 4 MG/2 ML VIAL IVPUSH (17:15)
[2021-03-11 17:16] LABS: MANUAL DIFF FLAG NO
[2021-03-11 17:18] LABS: Basophils Percent Auto 0.3 % (0-2); Eosinophils Absolute Auto 0.1 X10*3/uL (0.0-0.4); Eosinophils Percent Auto 1.6 % (0-4); Hematocrit 36.1 % (42.0-52.0); Hemoglobin 11.8 g/dl (14.0-18.0); Imm Gran Abs Auto 0.05 X10*3/uL (0.00-0.03); Imm Gran Pct Auto 0.8 % (0.0-0.4); Lymphocytes Absolute Auto 1.7 X10*3/uL (1.2-4.9); Lymphocytes Percent Auto 26.4 % (20-40); Mean Corpuscular HGB Conc 32.7 g/dl (31.0-36.0); Mean Corpuscular Hemoglobin 32.8 pg (27.0-33.0); Mean Corpuscular Volume 100.3 fL (80.0-98.0); Mean Platelet Volume 9.7 fL (9.4-12.4); Monocytes Absolute Auto 0.5 X10*3/uL (0.1-1.2); Monocytes Percent Auto 7.2 % (2-11); Neutrophils Absolute Auto 4.1 x10*3/uL (2.0-8.3); Neutrophils Percent Auto 63.7 % (45-73); Platelet Count 208 X10*3/uL (160-400); Red Cell Distribution Width 13.8 % (11.0-16.0); White Blood Count 6.4 X10*3/uL (4.8-10.8)
[2021-03-11 17:40] LABS: COVID-19 Test Negative (Negative); IDNOW Serial# 9DD0AD1C
[2021-03-11 17:46] LABS: Alanine Aminotransferase 16 U/L (0-40); Albumin Level 4.5 g/dL (3.5-5.0); Alkaline Phosphatase 65 U/L (39-117); Anion Gap 16 (12-20); Aspartate Amino Transferase 31 U/L (5-37); Bilirubin Direct 0.2 mg/dL (0.0-0.5); Bilirubin Total 0.5 mg/dL (0.0-1.0); Blood Urea Nitrogen 41 mg/dL (9-16); Calcium 9.4 mg/dL (8.4-10.2); Carbon Dioxide 20 mmol/L (22-29); Chloride 109 mmol/L (96-108); Creatinine Clr Calc Pharmacy 21.3; Estimated Glomerular Filt Rate 17; Glucose Random 105 mg/dL (60-115); Lipase 35 U/L (8-78); Potassium 4.7 mmol/L (3.3-5.1); Sodium 140 mmol/L (135-145); Total Protein 7.5 g/dL (6.5-8.0)
[2021-03-11 19:14] VITALS: BP 144/84; PULSE 50; RESP 16; O2SAT 99
== END 2021-03-11 20:41 | disposition home or self-care (01) ==
PROVIDERS: Emergency Provider Emergency Medicine; PCP Internal Medicine
DX: R53.81 Other malaise (principal); R53.1 Weakness; R11.2 Nausea with vomiting, unspecified; I12.9 Hypertensive chronic kidney disease with stage 1 through stage 4 chronic kidney disease, or unspecified chronic kidney disease; N18.4 Chronic kidney disease, stage 4 (severe); F03.90 Unspecified dementia, unspecified severity, without behavioral disturbance, psychotic disturbance, mood disturbance, and anxiety; Z20.822 Contact with and (suspected) exposure to COVID-19
CPT/HCPCS: 36415; 80048; 80076; 83690; 85025; 87635; 96361; 96374; 99284; J2405

== ENCOUNTER 2021-04-02 07:45 | Outpatient (REF) | payer MEDICARE, SELFPAY ==
[2021-04-02 08:05] LABS: MANUAL DIFF FLAG NO
[2021-04-02 08:13] LABS: Basophils Percent Auto 0.7 % (0-2); Eosinophils Absolute Auto 0.2 X10*3/uL (0.0-0.4); Eosinophils Percent Auto 3.7 % (0-4); Hematocrit 34.2 % (42.0-52.0); Hemoglobin 11.2 g/dl (14.0-18.0); Imm Gran Abs Auto 0.03 X10*3/uL (0.00-0.03); Imm Gran Pct Auto 0.7 % (0.0-0.4); Lymphocytes Absolute Auto 1.4 X10*3/uL (1.2-4.9); Lymphocytes Percent Auto 31.1 % (20-40); Mean Corpuscular HGB Conc 32.7 g/dl (31.0-36.0); Mean Corpuscular Hemoglobin 33.2 pg (27.0-33.0); Mean Corpuscular Volume 101.5 fL (80.0-98.0); Mean Platelet Volume 9.4 fL (9.4-12.4); Monocytes Absolute Auto 0.4 X10*3/uL (0.1-1.2); Monocytes Percent Auto 8.5 % (2-11); Neutrophils Absolute Auto 2.4 x10*3/uL (2.0-8.3); Neutrophils Percent Auto 55.3 % (45-73); Platelet Count 201 X10*3/uL (160-400); Red Blood Count 3.37 X10*6/uL (4.60-5.80); Red Cell Distribution Width 14.6 % (11.0-16.0); White Blood Count 4.4 X10*3/uL (4.8-10.8)
[2021-04-02 08:45] LABS: Albumin Level 4.3 g/dL (3.5-5.0); Anion Gap 14 (12-20); Blood Urea Nitrogen 36 mg/dL (9-16); Calcium 9.8 mg/dL (8.4-10.2); Carbon Dioxide 21 mmol/L (22-29); Chloride 109 mmol/L (96-108); Estimated Glomerular Filt Rate 16; Magnesium 2.2 mg/dL (1.6-2.6); Phosphorus 3.7 mg/dL (2.7-4.5); Potassium 4.4 mmol/L (3.3-5.1); Sodium 140 mmol/L (135-145)
[2021-04-02 09:06] LABS: Vitamin D 25-OH Total 53.8 ng/mL (>30)
[2021-04-02 09:32] LABS: Appearance Urine CLEAR; Color Urine YELLOW; Glucose Urine UA NEG (NEG); Leukocyte Esterase Urine NEG (NEG); Nitrite Urine NEG (NEG); Urine Blood NEG (NEG); Urine Ketones NEG (NEG); Urine Protein TRACE MG/DL (NEG-TRACE)
[2021-04-02 09:56] LABS: Creatinine Urine 116.93 mg/dL; Microalbum/Creatinine Ratio Ur 52.1 ug/mg cr; Protein/Creatinine Ratio, Ur 0.34 (<0.2); Total Protein Urine Random 40 mg/dL (<12)
[2021-04-02 10:04] LABS: RBC Urine 0 /HPF (0); WBC Urine 0 /HPF (0-4)
[2021-04-03 20:55] LABS: Calcium (PTHI) 9.5 mg/dL (8.6-10.3); PTHI 69 pg/mL (14-64)
== END 2021-04-02 07:46 | disposition home or self-care (01) ==
LOC: HO.LAB 07:45
PROVIDERS: PCP Internal Medicine; Visit Provider Internal Medicine Nephrology
DX: I12.0 Hypertensive chronic kidney disease with stage 5 chronic kidney disease or end stage renal disease (principal); N18.5 Chronic kidney disease, stage 5
CPT/HCPCS: 36415; 80051; 81001; 82040; 82043; 82306; 82310; 82565; 83735; 83970; 84100; 84156; 84520; 85025; 87086

== ENCOUNTER 2021-04-17 09:41 | Outpatient (REF) | payer MEDICARE, SELFPAY ==
[2021-04-17 10:46] LABS: Alanine Aminotransferase 17 U/L (0-40); Albumin Level 4.3 g/dL (3.5-5.0); Alkaline Phosphatase 56 U/L (39-117); Anion Gap 13 (12-20); Aspartate Amino Transferase 28 U/L (5-37); Bilirubin Total 0.6 mg/dL (0.0-1.0); Blood Urea Nitrogen 31 mg/dL (9-16); Carbon Dioxide 23 mmol/L (22-29); Chloride 109 mmol/L (96-108); Cholesterol 189 mg/dL; Estimated Glomerular Filt Rate 17; Glucose Fasting 131 mg/dL (60-99); HDL Cholesterol 58 mg/dL; LDL Cholesterol Calculated 109 mg/dl; Potassium 4.5 mmol/L (3.3-5.1); Sodium 140 mmol/L (135-145); Triglycerides 110 mg/dL
== END 2021-04-17 09:42 | disposition home or self-care (01) ==
LOC: HO.LAB 09:41
PROVIDERS: PCP Internal Medicine; Visit Provider Nurse Practitioner Family
DX: E78.5 Hyperlipidemia, unspecified (principal); Z13.1 Encounter for screening for diabetes mellitus
CPT/HCPCS: 36415; 80053; 80061

== ENCOUNTER 2021-08-07 09:23 | Outpatient (REF) | payer MEDICARE, SELFPAY ==
[2021-08-07 10:01] LABS: MANUAL DIFF FLAG NO
[2021-08-07 10:27] LABS: Basophils Percent Auto 0.6 % (0-2); Eosinophils Absolute Auto 0.1 X10*3/uL (0.0-0.4); Eosinophils Percent Auto 2.2 % (0-4); Hematocrit 34.7 % (42.0-52.0); Hemoglobin 11.2 g/dl (14.0-18.0); Imm Gran Abs Auto 0.08 X10*3/uL (0.00-0.03); Imm Gran Pct Auto 1.5 % (0.0-0.4); Lymphocytes Absolute Auto 1.3 X10*3/uL (1.2-4.9); Lymphocytes Percent Auto 24.3 % (20-40); Mean Corpuscular HGB Conc 32.3 g/dl (31.0-36.0); Mean Corpuscular Hemoglobin 33.7 pg (27.0-33.0); Mean Corpuscular Volume 104.5 fL (80.0-98.0); Mean Platelet Volume 9.9 fL (9.4-12.4); Monocytes Absolute Auto 0.4 X10*3/uL (0.1-1.2); Monocytes Percent Auto 7.3 % (2-11); Neutrophils Absolute Auto 3.4 x10*3/uL (2.0-8.3); Neutrophils Percent Auto 64.1 % (45-73); Platelet Count 205 X10*3/uL (160-400); Red Blood Count 3.32 X10*6/uL (4.60-5.80); Red Cell Distribution Width 12.7 % (11.0-16.0); White Blood Count 5.3 X10*3/uL (4.8-10.8)
[2021-08-07 10:58] LABS: Appearance Urine CLEAR; Color Urine YELLOW; Glucose Urine UA NEG (NEG); Leukocyte Esterase Urine NEG (NEG); Nitrite Urine NEG (NEG); Urine Blood NEG (NEG); Urine Ketones NEG (NEG); Urine Protein TRACE MG/DL (NEG-TRACE)
[2021-08-07 11:09] LABS: Albumin Level 4.4 g/dL (3.5-5.0); Anion Gap 15 (12-20); Blood Urea Nitrogen 48 mg/dL (9-16); Calcium 9.8 mg/dL (8.4-10.2); Carbon Dioxide 23 mmol/L (22-29); Chloride 106 mmol/L (96-108); Estimated Glomerular Filt Rate 15; Magnesium 2.2 mg/dL (1.6-2.6); Phosphorus 4.2 mg/dL (2.7-4.5); Potassium 4.8 mmol/L (3.3-5.1); Sodium 139 mmol/L (135-145)
[2021-08-07 11:44] LABS: Creatinine Urine 115.26 mg/dL; Protein/Creatinine Ratio, Ur 0.33 (<0.2); Total Protein Urine Random 38 mg/dL (<12)
[2021-08-09 12:26] LABS: Calcium (PTHI) 9.7 mg/dL (8.6-10.3); PTHI 90 pg/mL (16-77)
== END 2021-08-07 09:24 | disposition home or self-care (01) ==
LOC: HO.LAB 09:23
PROVIDERS: PCP Internal Medicine; Visit Provider Internal Medicine Nephrology
DX: I12.9 Hypertensive chronic kidney disease with stage 1 through stage 4 chronic kidney disease, or unspecified chronic kidney disease (principal); N18.4 Chronic kidney disease, stage 4 (severe); N25.0 Renal osteodystrophy
CPT/HCPCS: 36415; 80051; 81003; 82040; 82043; 82306; 82310; 82565; 83735; 83970; 84100; 84156; 84520; 85025; 87086

== ENCOUNTER 2021-08-20 16:19 | Outpatient (REF) | payer MEDICARE, SELFPAY ==
--- NOTE | ~2021-08-20 | XR_ITS ---
EXAMINATION: XR CHEST CLINICAL INFORMATION: Hyperventilation. COMPARISON: None TECHNIQUE: Frontal view of the chest was obtained. FINDINGS: No significant abnormality is noted involving the heart, lungs, mediastinum, bony thorax or soft tissues. XR/XR chest 1V IMPRESSION: Unremarkable chest exam.
== END 2021-08-20 16:20 | disposition home or self-care (01) ==
LOC: HO.XRAY 16:19
PROVIDERS: PCP Internal Medicine; Visit Provider Nurse Practitioner Acute Care
DX: R06.4 Hyperventilation (principal)
CPT/HCPCS: 71045

== ENCOUNTER → 2021-08-21 10:43 | Outpatient (REF) | payer MEDICARE, SELFPAY ==
--- NOTE | 2021-08-21 10:47 | ECG_ITS ---
Test Reason : htn Blood Pressure : / mmHG Vent. Rate : 069 BPM Atrial Rate : 069 BPM P-R Int : 164 ms QRS Dur : 090 ms QT Int : 392 ms P-R-T Axes : 066 027 052 degrees QTc Int : 420 ms Normal sinus rhythm Low voltage QRS Borderline ECG When compared with ECG of 09-FEB-2020 13:13, No significant change was found Referred By: Elsa Driscoll Electronically Signed By:Jeffery Foster
== END ==
LOC: HO.CARD 10:43
PROVIDERS: PCP Internal Medicine; Visit Provider Nurse Practitioner Acute Care
DX: R06.4 Hyperventilation (principal)
CPT/HCPCS: 93005

== ENCOUNTER 2021-10-24 11:45 | Outpatient (REF) | payer MEDICARE, SELFPAY ==
--- NOTE | ~2021-10-24 | XR_ITS ---
EXAMINATION: XR LUMBOSACRAL SPINE CLINICAL INFORMATION: Dorsalgia COMPARISON: None TECHNIQUE: Three views of the lumbosacral spine. FINDINGS: There is normal lumbar lordosis. There is mild dextro scoliosis likely positional or spasm. There is grade 1 anterolisthesis L4 over L5. Rest of the vertebral alignment is normal. There is loss of disc height virtually every lumbar disc level sparing the L3-4 disc level. No lytic or sclerotic process seen. The SI joints are symmetrical. The paravertebral soft tissues are normal. XR/XR lumbar spine 2-3V IMPRESSION: Grade 1 anterolisthesis L4-L5. There are degenerative disc changes sparing the L2-L3 disc level. There is moderate ventral spondylosis L1-L2 disc level. No fracture.
[2021-10-24 12:01] LABS: MANUAL DIFF FLAG NO
[2021-10-24 12:37] LABS: Basophils Percent Auto 0.4 % (0-2); Eosinophils Absolute Auto 0.2 X10*3/uL (0.0-0.4); Eosinophils Percent Auto 3.4 % (0-4); Hematocrit 34.9 % (42.0-52.0); Hemoglobin 11.3 g/dl (14.0-18.0); Imm Gran Abs Auto 0.05 X10*3/uL (0.00-0.03); Imm Gran Pct Auto 0.9 % (0.0-0.4); Lymphocytes Absolute Auto 1.3 X10*3/uL (1.2-4.9); Lymphocytes Percent Auto 22.9 % (20-40); Mean Corpuscular HGB Conc 32.4 g/dl (31.0-36.0); Mean Corpuscular Hemoglobin 33.7 pg (27.0-33.0); Mean Corpuscular Volume 104.2 fL (80.0-98.0); Mean Platelet Volume 10.1 fL (9.4-12.4); Monocytes Absolute Auto 0.4 X10*3/uL (0.1-1.2); Neutrophils Absolute Auto 3.7 x10*3/uL (2.0-8.3); Neutrophils Percent Auto 65.4 % (45-73); Platelet Count 205 X10*3/uL (160-400); Red Blood Count 3.35 X10*6/uL (4.60-5.80); Red Cell Distribution Width 12.3 % (11.0-16.0); White Blood Count 5.6 X10*3/uL (4.8-10.8)
[2021-10-24 13:02] LABS: Anion Gap 16 (12-20); Blood Urea Nitrogen 46 mg/dL (9-16); Calcium 9.5 mg/dL (8.4-10.2); Carbon Dioxide 21 mmol/L (22-29); Chloride 109 mmol/L (96-108); Estimated Glomerular Filt Rate 16; Glucose Random 134 mg/dL (60-115); Potassium 4.6 mmol/L (3.3-5.1); Sodium 141 mmol/L (135-145)
[2021-10-24 13:35] LABS: Folate > 20.0 ng/mL (> or = 4.0); Vitamin B12 519 pg/mL (200-900)
== END 2021-10-24 11:46 | disposition home or self-care (01) ==
LOC: HO.XRAY 11:45
PROVIDERS: PCP Internal Medicine; Visit Provider Internal Medicine
DX: Z13.0 Encounter for screening for diseases of the blood and blood-forming organs and certain disorders involving the immune mechanism (principal); R51.9 Headache, unspecified; D64.9 Anemia, unspecified; M54.9 Dorsalgia, unspecified
CPT/HCPCS: 36415; 72100; 80048; 82607; 82746; 85025

== ENCOUNTER 2021-11-11 13:55 | Outpatient (REF) | payer MEDICARE, SELFPAY ==
--- NOTE | ~2021-11-11 | XR_ITS ---
EXAMINATION: XR RIBS, LEFT CLINICAL INFORMATION: R07.81 - Pleurodynia COMPARISON: Chest radiograph 08/20/2021. TECHNIQUE: Frontal view chest and 4 views left ribs are obtained for a total of 5 views. FINDINGS: There is no visible rib fracture or rib destructive process. No pneumothorax, pleural reaction, or effusion. The heart is normal in size. No lobar or segmental airspace consolidation or air bronchograms. The hilar and mediastinal contours are stable. No free air beneath the diaphragms. XR/XR ribs LT min 3V w CXR1V IMPRESSION: Unremarkable examination.
== END 2021-11-11 13:56 | disposition home or self-care (01) ==
LOC: HO.XRAY 13:55
PROVIDERS: PCP Internal Medicine; Visit Provider Internal Medicine
DX: R07.81 Pleurodynia (principal)
CPT/HCPCS: 71101

== ENCOUNTER 2021-11-13 10:13 | Outpatient (REF) | payer MEDICARE, SELFPAY ==
--- NOTE | ~2021-11-13 | US_ITS ---
EXAMINATION: US VENOUS ULTRASOUND WITH DOPPLER LOWER EXTREMITY, LEFT CLINICAL INFORMATION: Left lower extremity edema. COMPARISON: None TECHNIQUE: Ultrasound of the deep veins is performed from the hip to the calf with compression sonography and color and pulse Doppler assessment. Spectral analysis with color-flow imaging is performed. FINDINGS: There is normal venous compression and respiratory variation and augmented flow. The visualized common femoral vein, superficial femoral vein, profunda femoral vein, popliteal vein, and the trifurcation region shows no evidence of deep venous thrombosis. No left popliteal cyst. The subcutaneous soft tissues are unremarkable. If the patient's symptoms persist, followup ultrasound in 5 days 7 days might be of value to exclude proximal propagation from a non-visualized calf vein. US/US venous duplex LE LT IMPRESSION: No evidence for deep venous thrombosis in the visualized veins of the left lower extremity.
== END 2021-11-13 10:14 | disposition home or self-care (01) ==
LOC: HO.US 10:13
PROVIDERS: Visit Provider Internal Medicine
DX: R60.0 Localized edema (principal)
CPT/HCPCS: 93971

== ENCOUNTER 2022-02-16 01:56 | Emergency (ER) | payer MEDICARE, SELFPAY ==
[2022-02-16 02:03] VITALS: BP 130/90; BP 141/98; PULSE 64; PULSE 92; RESP 16; O2SAT 100; BMI 21.7
[2022-02-16 02:48] VITALS: TEMP 34.4
--- NOTE | 2022-02-16 02:48 | PC.NURSE ---
Brianna patrick placed on pt.
[2022-02-16 03:44] LABS: MANUAL DIFF FLAG NO
[2022-02-16 03:45] LABS: Basophils Percent Auto 0.4 % (0-2); Eosinophils Percent Auto 0.3 % (0-4); Hematocrit 34.7 % (42.0-52.0); Hemoglobin 11.4 g/dl (14.0-18.0); Imm Gran Abs Auto 0.09 X10*3/uL (0.00-0.03); Lymphocytes Absolute Auto 0.8 X10*3/uL (1.2-4.9); Lymphocytes Percent Auto 8.9 % (20-40); Mean Corpuscular HGB Conc 32.9 g/dl (31.0-36.0); Mean Corpuscular Volume 103.6 fL (80.0-98.0); Mean Platelet Volume 9.7 fL (9.4-12.4); Monocytes Absolute Auto 0.4 X10*3/uL (0.1-1.2); Monocytes Percent Auto 4.3 % (2-11); Neutrophils Percent Auto 85.1 % (45-73); Platelet Count 185 X10*3/uL (160-400); Red Blood Count 3.35 X10*6/uL (4.60-5.80); Red Cell Distribution Width 12.5 % (11.0-16.0); White Blood Count 9.3 X10*3/uL (4.8-10.8)
--- NOTE | 2022-02-16 04:01 | ECG_ITS ---
Test Reason : ams Blood Pressure : / mmHG Vent. Rate : 041 BPM Atrial Rate : 041 BPM P-R Int : 000 ms QRS Dur : 086 ms QT Int : 484 ms P-R-T Axes : 000 030 050 degrees QTc Int : 399 ms Atrial fibrillation with slow ventricular response RSR' or QR pattern in V1 suggests right ventricular conduction delay Abnormal ECG When compared with ECG of 21-AUG-2021 10:50, Atrial fibrillation is new Heart rate has decreased Referred By: Chaz Phillips Electronically Signed By:BRANDEN MEDEL MD
--- NOTE | 2022-02-16 04:01 | ED.AMS ---
HPI - Altered Mental Status General Chief Complaint: Altered Mental Status Stated Complaint: AMS found on porch Time Seen by Provider: 02/16/22 03:55 Source: EMS and RN notes reviewed Mode of arrival: EMS Limitations: altered mental status (Alzheimer's dementia) History of Present Illness HPI narrative: 81-year-old male who is brought to emergency department by ambulance for evaluation of being lost. The patient was found 2 blocks away from his house on a neighbor's porch. The patient was wrapped in a blanket. There was no other information available about the patient. Patient does have a Alzheimer dementia and is oriented to person only, he lacks insight as to why he is here. He has no complaints and he does not appear to be in distress. The temperature outside is 34 degrees in the patient was found to be hypothermic on presentation with a temperature of 94 degrees F. Related Data Home Medications Medication Instructions Recorded Confirmed memantine 5 mg tablet 5 mg PO BID 02/09/20 01/23/22 fish oil-dha-epa 1,200 mg-144 1 cap PO DAILY 06/18/20 01/23/22 mg-216 mg capsule multivitamin (Daily Multi-Vitamin 1 tab PO DAILY 06/18/20 01/23/22 tablet) amlodipine 5 mg tablet 5 mg PO DAILY 10/05/20 01/23/22 lisinopril 5 mg tablet 5 mg PO DAILY 01/18/21 01/23/22 Previous Rx's Medication Instructions Recorded hydrochlorothiazide 25 mg tablet 25 mg PO DAILY #90 tabs 10/30/20 ondansetron 4 mg disintegrating 4 mg PO Q6-8H PRN nausea and 03/11/21 tablet vomiting #7 tabs atenolol 50 mg tablet 50 mg PO DAILY #90 tabs 05/06/21 trazodone 50 mg tablet 100 mg PO BEDTIME PRN insomnia #90 11/28/21 tabs Allergies Allergy/AdvReac Type Severity Reaction Status Date / Time No Known Allergies Allergy Verified 01/23/22 12:51 Review of Systems Review of Systems: Yes all other systems are reviewed and are negative PMFSH Past Medical History Medical History Bleeding Dehydration Dementia Elbow pain History of left inguinal hernia Hypertension Surgical History H/O rectal polypectomy History of colonoscopy History of inguinal hernia repair Family History Family History Father Medical history unknown Mother Medical history unknown Brother No problems noted. Son No problems noted. Son No problems noted. Daughter No problems noted. Daughter No problems noted. Daughter No problems noted. Daughter No problems noted. Social History Social History Housing: House Alcohol intake: never Patient Tobacco Use Status: Former Tobacco user e-Cigarette/Vaping Use: Never Used Second Hand Smoke Exposure: No Advance Directives: Yes Advance Directives on File: Yes Advance Directives Date on File: 01/23/21 service: Yes Current occupational status: retired Current occupational exposures/hazards: No Cognitive needs: No Hearing needs: No Vision needs: Yes Physical Exam ED Vital Signs: Vital Signs - 24 hr 02/16/22 02:03 02/16/22 02:48 02/16/22 05:05 Temperature 94.0 F L 97.4 F Pulse Rate 64 Respiratory Rate 16 Blood Pressure 141/98 H Pulse Oximetry 100 Oxygen Delivery Method Room Air BMI result Body Mass Index 21.7 Const Other: Awake, elderly male, appears to be disheveled, he is in no distress, he was able to tell me his name but had no idea why he was here in the emergency department Orientation/consciousness: oriented to person HENKY Head: Yes normal to inspection, Yes normocephalic and Yes atraumatic Ears: external ears normal General nose exam: Normal external nose present Face and sinus: Yes normal facial exam Mouth: Normal oral and palatal mucosa present Throat: Yes posterior oropharynx normal Eyes General: appearance normal, both eyes and all related structures Pupils: Equal, round and reactive pupils present Neck Neck: Yes normal visual inspection, Yes no lymphadenopathy, Yes trachea midline and Yes supple Chest Chest palpation & inspection: normal inspection of the chest and normal palpation of entire chest wall Resp Effort & Inspection: normal respiratory effort and able to speak in complete sentences Auscultation: clear to auscultation bilaterally Cardio Rate: regular rate Rhythm: regular rhythm Heart sounds: S1 normal heart sound present, S2 normal heart sound present and no murmurs GI Inspection: Yes normal to inspection Palpation (GI): Soft to palpation, nontender and no guarding Auscultation: normal bowel sounds General: Yes no CVA tenderness Back/Spine/Pelvis Back: no CVA tenderness Skin General skin exam: no rashes or lesions noted Neuro General: oriented to person Cranial nerves: Yes CN's II-XII intact bilaterally and Yes Equal, round and reactive pupils present Motor exam (neuro): 5/5 motor strength present throughout Extrem General: Yes normal to inspection Course Course Course Narrative: 81-year-old male with a history of Alzheimer dementia who was found 2 blocks away from his house on a neighbor's porch wrapped in a blanket. On presentation to the emergency department he is oriented to person only lacks insight as to why he is here in the emergency department. He was found to be hypothermic with a temperature of 94 degrees F. the patient was placed on a Halina Hugger warming blanket. I did order laboratory evaluation on the patient as well. At this time, we are trying to reach the patient's next of kin however with been unsuccessful. 0628: Laboratory evaluation: Anemia with an H&H of 11.4 and 34.7-this is chronic. BUN elevated 52, creatinine elevated 3.94-chronic. Glucose elevated 234. Alcohol level below detectable limits. COVID, influenza and RSV negative. The patient's temperature did come up with a warming blanket. Patient was initially bradycardic but I suspect that this was secondary to his hypothermia. The patient's sister is here in the emergency department she states that he is back to his baseline. The patient will be discharged home in the care of sister. MDM - Altered Mental Status Lab Data Attestation: I reviewed the patient's lab results. Result diagrams: 02/16/22 03:38 02/16/22 03:38 Labs: Lab Results 02/16/22 02/16/22 02/16/22 Range/Units 03:38 03:38 03:38 WBC 9.3 (4.8-10.8) X10*3/uL RBC 3.35 L (4.60-5.80) X10*6/uL Hgb 11.4 L (14.0-18.0) g/dl Hct 34.7 L (42.0-52.0) % MCV 103.6 H (80.0-98.0) fL MCH 34.0 H (27.0-33.0) pg MCHC 32.9 (31.0-36.0) g/dl RDW 12.5 (11.0-16.0) % Plt Count 185 (160-400) X10*3/uL MPV 9.7 (9.4-12.4) fL Immature Gran % (Auto) 1.0 H (0.0-0.4) % Neut % (Auto) 85.1 H (45-73) % Lymph % (Auto) 8.9 L (20-40) % [place] % (Auto) 4.3 (2-11) % Eos % (Auto) 0.3 (0-4) % Baso % (Auto) 0.4 (0-2) % Lymph # (Auto) 0.8 L (1.2-4.9) X10*3/uL [place] # (Auto) 0.4 (0.1-1.2) X10*3/uL Eos # (Auto) 0.0 (0.0-0.4) X10*3/uL Baso # (Auto) 0.0 (0.0-0.2) X10*3/uL Abs Immat Gran (auto) 0.09 H (0.00-0.03) X10*3/uL Absolute Neuts (auto) 8.0 (2.0-8.3) x10*3/uL Absolute Nucleated RBC 0.000 (0.0-0.012) X10*3/uL Nucleated RBC % (auto) 0.0 (0.0-0.2) /100WBC Sodium 140 (135-145) mmol/L Potassium 4.8 (3.3-5.1) mmol/L Chloride 104 (96-108) mmol/L Carbon Dioxide 20 L (22-29) mmol/L Anion Gap 21 H (12-20) BUN 52 H (9-16) mg/dL Creatinine 3.94 H (0.5-1.4) mg/dL Estim Creat Clear Calc 12.3 Estimated GFR 15 Random Glucose 234 H D (60-115) mg/dL Calcium 9.4 (8.4-10.2) mg/dL Total Bilirubin 0.3 (0.0-1.0) mg/dL AST 25 (5-37) U/L ALT 13 (0-40) U/L Alkaline Phosphatase 51 (39-117) U/L Total Protein 6.5 (6.5-8.0) g/dL Albumin 4.0 (3.5-5.0) g/dL Lipase 40 (8-78) U/L Ethyl Alcohol < 10 mg/dL COVID-19 (GUS) COVID-19 Clin Com Influenza Type A (MAY) Cancelled Influenza Type A (PCR) (Negative) Influenza Type B (MAY) Cancelled Influenza Type B (PCR) (Negative) Influenza A & B Note Cancelled RSV RNA Qual (PCR) (Negative) SARS-CoV-2 RNA (RT-PCR) (Negative) 02/16/22 02/16/22 Range/Units 03:38 03:38 WBC (4.8-10.8) X10*3/uL RBC (4.60-5.80) X10*6/uL Hgb (14.0-18.0) g/dl Hct (42.0-52.0) % MCV (80.0-98.0) fL MCH (27.0-33.0) pg MCHC (31.0-36.0) g/dl RDW (11.0-16.0) % Plt Count (160-400) X10*3/uL MPV (9.4-12.4) fL Immature Gran % (Auto) (0.0-0.4) % Neut % (Auto) (45-73) % Lymph % (Auto) (20-40) % [place] % (Auto) (2-11) % Eos % (Auto) (0-4) % Baso % (Auto) (0-2) % Lymph # (Auto) (1.2-4.9) X10*3/uL [place] # (Auto) (0.1-1.2) X10*3/uL Eos # (Auto) (0.0-0.4) X10*3/uL Baso # (Auto) (0.0-0.2) X10*3/uL Abs Immat Gran (auto) (0.00-0.03) X10*3/uL Absolute Neuts (auto) (2.0-8.3) x10*3/uL Absolute Nucleated RBC (0.0-0.012) X10*3/uL Nucleated RBC % (auto) (0.0-0.2) /100WBC Sodium (135-145) mmol/L Potassium (3.3-5.1) mmol/L Chloride (96-108) mmol/L Carbon Dioxide (22-29) mmol/L Anion Gap (12-20) BUN (9-16) mg/dL Creatinine (0.5-1.4) mg/dL Estim Creat Clear Calc Estimated GFR Random Glucose (60-115) mg/dL Calcium (8.4-10.2) mg/dL Total Bilirubin (0.0-1.0) mg/dL AST (5-37) U/L ALT (0-40) U/L Alkaline Phosphatase (39-117) U/L Total Protein (6.5-8.0) g/dL Albumin (3.5-5.0) g/dL Lipase (8-78) U/L Ethyl Alcohol mg/dL COVID-19 (GUS) Cancelled COVID-19 Clin Com Cancelled Influenza Type A (MAY) Influenza Type A (PCR) NEGATIVE (Negative) Influenza Type B (MAY) Influenza Type B (PCR) NEGATIVE (Negative) Influenza A & B Note RSV RNA Qual (PCR) NEGATIVE (Negative) SARS-CoV-2 RNA (RT-PCR) NEGATIVE (Negative) ECG Data ECG #1: Interpretation: 0330: Sinus bradycardia with a rate of 41, no ST segment elevation or depression, no PACs, no PVCs, no significant T-wave abnormalities. No old EKG for comparison. Discharge Plan Discharge Clinical Impression: Wandering behavior due to dementia Hypothermia Qualifiers: Encounter type: initial encounter Qualified Code(s): T68.XXXA - Hypothermia, initial encounter Patient Disposition: Home, Self-Care Additional Instructions: Your blood work was consistent with your baseline tests. Your COVID-19, influenza and RSV tests were negative. You were very cold when you got here your temperature was 94 degrees F, a normal temperature is 98.6 degrees F. Continue taking your medications as prescribed by your doctor. Follow-up with your doctor in 2 days. Please return to the emergency department if your symptoms get worse or if you develop any symptoms that are concerning to you. Prescriptions: No Action hydrochlorothiazide 25 mg tablet 25 mg PO DAILY Qty: 90 8RF atenolol 50 mg tablet 50 mg PO DAILY Qty: 90 8RF trazodone 50 mg tablet 100 mg PO BEDTIME PRN (Reason: insomnia) Qty: 90 8RF ondansetron 4 mg tablet,disintegrating 4 mg PO Q6-8H PRN (Reason: nausea and vomiting) Qty: 7 0RF memantine 5 mg tablet 5 mg PO BID fish oil-dha-epa 1,200-144-216 mg capsule 1 cap PO DAILY multivitamin [Daily Multi-Vitamin] Tablet 1 tab PO DAILY lisinopril 5 mg tablet 5 mg PO DAILY amlodipine 5 mg tablet 5 mg PO DAILY
[2022-02-16 04:25] LABS: Influenza A PCR NEGATIVE (Negative); Influenza B PCR NEGATIVE (Negative); Resp Syncy Virus RNA Qual PCR NEGATIVE (Negative); SARS COV2 PCR INHOUSE NEGATIVE (Negative)
[2022-02-16 04:38] LABS: Alanine Aminotransferase 13 U/L (0-40); Alkaline Phosphatase 51 U/L (39-117); Anion Gap 21 (12-20); Aspartate Amino Transferase 25 U/L (5-37); Bilirubin Total 0.3 mg/dL (0.0-1.0); Blood Urea Nitrogen 52 mg/dL (9-16); Calcium 9.4 mg/dL (8.4-10.2); Carbon Dioxide 20 mmol/L (22-29); Chloride 104 mmol/L (96-108); Creatinine Clr Calc Pharmacy 12.3; Estimated Glomerular Filt Rate 15; Ethanol < 10 mg/dL; Glucose Random 234 mg/dL (60-115); Lipase 40 U/L (8-78); Potassium 4.8 mmol/L (3.3-5.1); Sodium 140 mmol/L (135-145); Total Protein 6.5 g/dL (6.5-8.0)
--- NOTE | 2022-02-16 05:02 | PC.NURSE ---
Pt refused to wear monitoring equipment.
[2022-02-16 05:05] VITALS: TEMP 36.3
== END 2022-02-16 06:54 | disposition home or self-care (01) ==
PROVIDERS: Emergency Provider Emergency Medicine Emergency Medical Services
DX: G30.9 Alzheimer's disease, unspecified (principal); F02.818 Dementia in other diseases classified elsewhere, unspecified severity, with other behavioral disturbance; Z91.83 Wandering in diseases classified elsewhere; T68.XXXA Hypothermia, initial encounter; X31.XXXA Exposure to excessive natural cold, initial encounter; Z20.822 Contact with and (suspected) exposure to COVID-19
CPT/HCPCS: 0241U; 80053; 82077; 83690; 85025; 93005; 99283

== ENCOUNTER 2022-04-25 11:40 | Outpatient (REF) | payer MEDICARE, SELFPAY ==
[2022-04-25 11:50] LABS: MANUAL DIFF FLAG NO
[2022-04-25 11:57] LABS: Basophils Percent Auto 0.5 % (0-2); Eosinophils Absolute Auto 0.1 X10*3/uL (0.0-0.4); Eosinophils Percent Auto 2.2 % (0-4); Hematocrit 36.7 % (42.0-52.0); Hemoglobin 12.1 g/dl (14.0-18.0); Imm Gran Abs Auto 0.08 X10*3/uL (0.00-0.03); Imm Gran Pct Auto 1.3 % (0.0-0.4); Lymphocytes Absolute Auto 1.6 X10*3/uL (1.2-4.9); Lymphocytes Percent Auto 25.4 % (20-40); Mean Corpuscular Hemoglobin 34.1 pg (27.0-33.0); Mean Corpuscular Volume 103.4 fL (80.0-98.0); Mean Platelet Volume 9.2 fL (9.4-12.4); Monocytes Absolute Auto 0.5 X10*3/uL (0.1-1.2); Monocytes Percent Auto 7.3 % (2-11); Neutrophils Percent Auto 63.3 % (45-73); Platelet Count 204 X10*3/uL (160-400); Red Blood Count 3.55 X10*6/uL (4.60-5.80); Red Cell Distribution Width 12.4 % (11.0-16.0); White Blood Count 6.3 X10*3/uL (4.8-10.8)
[2022-04-25 12:49] LABS: Anion Gap 17 (12-20); Blood Urea Nitrogen 48 mg/dL (9-16); Calcium 9.6 mg/dL (8.4-10.2); Carbon Dioxide 20 mmol/L (22-29); Chloride 108 mmol/L (96-108); Estimated Glomerular Filt Rate 16; Glucose Random 146 mg/dL (60-115); Potassium 4.9 mmol/L (3.3-5.1); Sodium 140 mmol/L (135-145)
[2022-04-25 13:07] LABS: Prostate Specific Antigen Scr 0.64 ng/mL (<0.05-4.0)
== END 2022-04-25 11:41 | disposition home or self-care (01) ==
LOC: HO.LAB 11:40
PROVIDERS: PCP Internal Medicine; Visit Provider Internal Medicine
DX: Z00.00 Encounter for general adult medical examination without abnormal findings (principal); R19.8 Other specified symptoms and signs involving the digestive system and abdomen; D64.9 Anemia, unspecified; N19 Unspecified kidney failure; Z12.5 Encounter for screening for malignant neoplasm of prostate
CPT/HCPCS: 36415; 80048; 84153; 85025

== ENCOUNTER 2022-05-15 08:49 | Outpatient (REF) | payer MEDICARE, SELFPAY ==
--- NOTE | ~2022-05-15 | CT_ITS ---
EXAMINATION: CT ABDOMEN AND PELVIS WITHOUT CONTRAST CLINICAL INFORMATION: Digestive system symptoms. COMPARISON: None TECHNIQUE: Multidetector volumetric imaging was performed from the superior aspect of the liver through the pubic symphysis. Sagittal and coronal reformatted images were obtained on the technologist's workstation. This CT examination was performed using dose optimization techniques as appropriate, variously including the following: *Automated exposure control *Adjustment of mA and/or kV according to patient size (this includes techniques or standardized protocols for targeted exams where dose is matched to indication/reason for exam; i.e. extremities or head) *Use of iterative reconstruction technique DLP: 233 mGy-cm FINDINGS: LUNG BASES: The visualized lung bases are unremarkable. LIVER, GALLBLADDER, AND BILIARY TREE: The liver is normal in size, shape, and attenuation. No focal hepatic lesion or biliary ductal dilatation is present. The gallbladder is unremarkable with no evidence of radiopaque gallstones, gallbladder wall thickening, or obvious pericholecystic inflammatory changes. PANCREAS: Unremarkable SPLEEN: Unremarkable ADRENAL GLANDS: Unremarkable KIDNEYS AND URETERS: The kidneys are normal in size, shape, and attenuation. No hydronephrosis, hydroureter, or calculi seen. No perinephric stranding. BLADDER: Unremarkable GASTROINTESTINAL TRACT: There is scattered stool and diverticulitis seen in the colon without distention. Oral contrast opacified small bowel loops are normal caliber. Appendix is normal caliber. The stomach is nondistended. There is mild mural thickening involving the distal sigmoid colon and the rectum. No pericolic fat stranding seen. ABDOMINAL WALL: No significant hernia is appreciated. LYMPH NODES: Normal VASCULAR: There is focal atherosclerotic aneurysm distal abdominal aorta measuring 2.6 x 2.3 cm axial image 37/3. There is chronic calcification of abdominal aorta and both common and external iliac arteries as noted. PELVIC VISCERA: The prostate gland is normal size. Periprostatic fat planes are preserved. OSSEOUS STRUCTURES: Grade 1 anterolisthesis L4-L5. There are degenerative disc changes with vacuum disc phenomena L5-S1, L4-L5, L2-L3, L1-L2 and T12-L1 disc levels. No aggressive lytic or sclerotic process seen. CT/CT abdomen pelvis wo IV con IMPRESSION: 1. Mild mural thickening distal sigmoid colon and the rectum. Question low-grade inflammatory or infectious colitis. There is no pericolic fat stranding seen. 2. Mild constipation. 3. Focal atherosclerotic aneurysm distal abdominal aorta. 4. Degenerative disc changes lumbar spine with grade 1 anterolisthesis L4 over L5. No aggressive lytic or sclerotic process seen. Fleischner guidelines were followed.
[2022-05-15] MEDS: Barium Sulfate Oral (Berry) 450 ML ORAL.SUSP 900 ML PO (10:50)
== END 2022-05-15 08:50 | disposition home or self-care (01) ==
LOC: HO.CT 08:49
PROVIDERS: PCP Internal Medicine; Visit Provider Internal Medicine
DX: R19.8 Other specified symptoms and signs involving the digestive system and abdomen (principal)
CPT/HCPCS: 74176

== ENCOUNTER 2022-05-30 11:20 | Outpatient (REF) | payer MEDICARE, SELFPAY ==
[2022-05-30 11:33] LABS: MANUAL DIFF FLAG NO
[2022-05-30 12:53] LABS: Basophils Percent Auto 0.4 % (0-2); Eosinophils Absolute Auto 0.1 X10*3/uL (0.0-0.4); Eosinophils Percent Auto 1.9 % (0-4); Hematocrit 37.2 % (42.0-52.0); Imm Gran Pct Auto 1.5 % (0.0-0.4); Lymphocytes Absolute Auto 1.6 X10*3/uL (1.2-4.9); Lymphocytes Percent Auto 24.3 % (20-40); Mean Corpuscular HGB Conc 32.3 g/dl (31.0-36.0); Mean Corpuscular Hemoglobin 33.1 pg (27.0-33.0); Mean Corpuscular Volume 102.8 fL (80.0-98.0); Monocytes Absolute Auto 0.6 X10*3/uL (0.1-1.2); Monocytes Percent Auto 8.7 % (2-11); Neutrophils Absolute Auto 4.3 x10*3/uL (2.0-8.3); Neutrophils Percent Auto 63.2 % (45-73); Platelet Count 199 X10*3/uL (160-400); Red Blood Count 3.62 X10*6/uL (4.60-5.80); Red Cell Distribution Width 13.2 % (11.0-16.0); White Blood Count 6.8 X10*3/uL (4.8-10.8)
[2022-05-30 13:48] LABS: Estimated Glomerular Filt Rate 13
[2022-05-30 14:10] LABS: Anion Gap 19 (12-20); Blood Urea Nitrogen 70 mg/dL (9-16); Calcium 9.3 mg/dL (8.4-10.2); Carbon Dioxide 16 mmol/L (22-29); Chloride 108 mmol/L (96-108); Glucose Random 125 mg/dL (60-115); Potassium 4.7 mmol/L (3.3-5.1); Sodium 138 mmol/L (135-145)
== END 2022-05-30 11:21 | disposition home or self-care (01) ==
LOC: HO.LAB 11:20
PROVIDERS: PCP Internal Medicine; Visit Provider Internal Medicine
DX: R63.8 Other symptoms and signs concerning food and fluid intake (principal); D64.9 Anemia, unspecified
CPT/HCPCS: 36415; 80048; 85025

== ENCOUNTER 2022-05-30 16:34 | Emergency (ER) | payer MEDICARE, SELFPAY ==
--- NOTE | ~2022-05-30 | XR_ITS ---
EXAMINATION: CHEST 2 VIEWS CLINICAL INFORMATION: Worsening CKD/failure to thrive . COMPARISON: 11/11/2021. TECHNIQUE: PA and lateral views of the chest obtained. FINDINGS: The lungs are well expanded. No focal infiltrate, effusion, edema, or pneumothorax. Cardiac and mediastinal silhouettes are within normal limits for technique. Old healed left-sided rib fractures but no acute bony abnormality seen XR/XR chest 2V IMPRESSION: No evidence of acute disease
[2022-05-30 16:51] VITALS: BP 132/91; PULSE 75; RESP 18; TEMP 37.1; O2SAT 99
--- NOTE | 2022-05-30 16:51 | ED_ITS ---
HPI - General Adult General Chief complaint: General Medical <TONEY Howard - Last Filed: 05/30/22 16:55> Stated complaint: Dehydration? Sent by <TONEY Howard - Last Filed: 05/30/22 16:55> Time Seen by Provider: 05/30/22 23:49 <TONEY Howard - Last Filed: 05/30/22 16:55> Source: family <Ilia Davis MD - Last Filed: 05/31/22 03:05> Mode of arrival: ambulatory <Ilia Davis MD - Last Filed: 05/31/22 03:05> Limitations: no limitations <Ilia Davis MD - Last Filed: 05/31/22 03:05> History of Present Illness HPI narrative: See other chart but briefly this 81-year-old male with history of dementia presents with dehydration. Patient has poor oral intake. He is difficult to redirect in terms of drinking appropriate levels of fluids and eating appropriately. He was seen by his primary care provider and sent to the emergency department. Of concern, patient has end-stage renal disease. He is not wanting dialysis. There is concern for progression of his ESRD. Patient offers no acute complaints although daughter reports that he claims to have nausea and vomiting which is not witnessed. Patient will use Zofran at home as needed. <Ilia Davis MD - Last Filed: 05/31/22 03:05> Related Data Home medications: Home Medications Medication Instructions Recorded Confirmed memantine 5 mg tablet 5 mg PO BID 02/09/20 05/30/22 fish oil-dha-epa 1,200 mg-144 1 cap PO DAILY 06/18/20 05/30/22 mg-216 mg capsule multivitamin (Daily Multi-Vitamin 1 tab PO DAILY 06/18/20 05/30/22 tablet) amlodipine 5 mg tablet 5 mg PO DAILY 10/05/20 05/30/22 lisinopril 5 mg tablet 5 mg PO DAILY 01/18/21 05/30/22 Previous Rx's Medication Instructions Recorded hydrochlorothiazide 25 mg tablet 25 mg PO DAILY #90 tabs 10/30/20 ondansetron 4 mg disintegrating 4 mg PO Q6-8H PRN nausea and 03/11/21 tablet vomiting #7 tabs atenolol 50 mg tablet 50 mg PO DAILY #90 tabs 05/06/21 trazodone 50 mg tablet 100 mg PO BEDTIME PRN insomnia #90 11/28/21 tabs <TONEY Howard - Last Filed: 05/30/22 16:55> Allergies/adverse reactions: Allergies Allergy/AdvReac Type Severity Reaction Status Date / Time No Known Allergies Allergy Verified 05/30/22 10:58 <TONEY Howard - Last Filed: 05/30/22 16:55> Review of Systems Review of Systems: Yes Unobtainable due to mental status <Ilia Davis MD - Last Filed: 05/31/22 03:05> COUNTS INCLUDE 234 BEDS AT THE [facility] Past Medical History Medical History: Medical History Bleeding Dehydration Dementia Elbow pain History of left inguinal hernia Hypertension <TONEY Howard - Last Filed: 05/30/22 16:55> Surgical History: Surgical History H/O rectal polypectomy History of colonoscopy History of inguinal hernia repair <TONEY Howard - Last Filed: 05/30/22 16:55> Family History Family History: Family History Father Medical history unknown Mother Medical history unknown Brother No problems noted. Son No problems noted. Son No problems noted. Daughter No problems noted. Daughter No problems noted. Daughter No problems noted. Daughter No problems noted. <TONEY Howard - Last Filed: 05/30/22 16:55> Social History Social History: Social History Housing: House Alcohol intake: never Patient Tobacco Use Status: Former Tobacco user e-Cigarette/Vaping Use: Never Used Second Hand Smoke Exposure: No Advance Directives: Yes Advance Directives on File: Yes Advance Directives Date on File: 01/23/21 service: Yes Current occupational status: retired Current occupational exposures/hazards: No Cognitive needs: No Hearing needs: No Vision needs: Yes <TONEY Howard - Last Filed: 05/30/22 16:55> Physical Exam ED Vital Signs: Vital Signs - 24 hr 05/30/22 16:51 05/31/22 01:18 Temperature 98.7 F 98.4 F Pulse Rate 75 76 Respiratory Rate 18 18 Blood Pressure 132/91 H 138/87 Pulse Oximetry 99 99 Oxygen Delivery Method Room Air Room Air BMI result Body Mass Index 20.0 <TONEY Howard - Last Filed: 05/30/22 16:55> Vital Signs - 24 hr 05/30/22 16:51 05/31/22 01:18 Temperature 98.7 F 98.4 F Pulse Rate 75 76 Respiratory Rate 18 18 Blood Pressure 132/91 H 138/87 Pulse Oximetry 99 99 Oxygen Delivery Method Room Air Room Air BMI result Body Mass Index 20.0 GEN: Well developed, no acute distress, alert HEENT: Normocephalic, atraumatic, normal external ears, nose appears normal, no oropharyngeal edema or exudates Eyes: Normal to appearance Neck: Supple, no lymphadenopathy Respiratory: Talks in complete sentences, no respiratory distress, clear to auscultation bilaterally Cardiovascular: Regular rate and rhythm, no murmurs rubs or gallops Abdomen: Soft, nontender, nondistended, no guarding, no rebound Back: No CVA tenderness Extremities: No clubbing cyanosis or edema Neurologic: No focal neurologic deficits, cranial nerves 2-12 intact, strength is 5/5 bilaterally Skin: No rash <Ilia Davis MD - Last Filed: 05/31/22 03:05> Course Course Course Narrative: CRISTOPHER- 16:50PM - 81yoM with PMHx of Alzheimer's, HTN and CKD who is presenting to the ER with his daughter at bedside with complaints of generalized fatigue, malaise, decreased p.o. intake for the past 9 days and abnormal labs with increased BUN and creatinine. Patient was seen by his PCP prior to arrival and sent here for further evaluation treatment for possible dehydration. Patient had labs well his PCP with mild anemia with an H&H of 12.0/37.2 which is similar compared to prior. Carbon dioxide 16. Although BUN/creatinine significantly 70/4.35. Random glucose 125. Otherwise all his other labs were normal. Plan: Therefore at this time will add COVID/RSV/flu swab, UA, CXR and EKG. Pt will be sent to the waiting room to re-evaluate in the ED. <TONEY Howard - Last Filed: 05/30/22 16:55> Reevaluation(s) Reevaluation #1: IV fluids are nearly done. Will discharge at this time. I discussed all results and discharge instructions with the patient's daughter. We discussed the possibility of scheduling outpatient transfusions if he continues to have poor oral intake. Also a consideration for palliative care as opposed to hospice care <Ilia Davis MD - Last Filed: 05/31/22 03:05> Time: 03:01 <Ilia Davis MD - Last Filed: 05/31/22 03:05> Medications Administered Discontinued Medications Generic Name Dose Route Start Last Admin Trade Name Freq PRN Reason Stop Dose Admin Sodium Chloride 1,000 mls @ 999 mls/hr 05/31/22 00:15 05/31/22 00:48 Ns IV 05/31/22 01:15 999 mls/hr .Q1H1M SASKIA Administration Ondansetron HCl 4 mg 05/31/22 00:01 05/31/22 00:50 Ondansetron Hcl 4 Mg/2 Ml Vial IVPUSH 05/31/22 00:02 4 mg ONCE ONE Administration <TONEY Howard - Last Filed: 05/30/22 16:55> Medications Administered Discontinued Medications Generic Name Dose Route Start Last Admin Trade Name Freq PRN Reason Stop Dose Admin Sodium Chloride 1,000 mls @ 999 mls/hr 05/31/22 00:15 05/31/22 00:48 Ns IV 05/31/22 01:15 999 mls/hr .Q1H1M SASKIA Administration Ondansetron HCl 4 mg 05/31/22 00:01 05/31/22 00:50 Ondansetron Hcl 4 Mg/2 Ml Vial IVPUSH 05/31/22 00:02 4 mg ONCE ONE Administration <Ilia Davis MD - Last Filed: 05/31/22 03:05> Medical Decision Making Medical Decision Making MDM Narrative: 81-year-old male with history of dementia presents with dehydration. Will check lab work. Will give patient IV fluids. Will provide Zofran given her reported history of nausea although does not. He has not had the symptoms but p atient has limited historian <Ilia Davis MD - Last Filed: 05/31/22 03:05> Differential Diagnosis Differential Diagnoses: The differential diagnosis associated with the presentation includes (Dehydration, electrolyte abnormality, progression to ESRD.) <Ilia Davis MD - Last Filed: 05/31/22 03:05> Admission/Observation Consideration of admission/observation: Escalation of care including admission/observation considered <Ilia Davis MD - Last Filed: 05/31/22 03:05> Lab Data MDM Lab Attestation statement: I reviewed the patient's lab results. (Outside labs from earlier today) <Ilia Davis MD - Last Filed: 05/31/22 03:05> Labs: Lab Results 05/30/22 Range/Units 17:13 Influenza Type A (PCR) NEGATIVE (Negative) Influenza Type B (PCR) NEGATIVE (Negative) RSV RNA Qual (PCR) NEGATIVE (Negative) SARS-CoV-2 RNA (RT-PCR) NEGATIVE (Negative) <TONEY Howard - Last Filed: 05/30/22 16:55> Lab Results 05/30/22 Range/Units 17:13 Influenza Type A (PCR) NEGATIVE (Negative) Influenza Type B (PCR) NEGATIVE (Negative) RSV RNA Qual (PCR) NEGATIVE (Negative) SARS-CoV-2 RNA (RT-PCR) NEGATIVE (Negative) <Ilia Davis MD - Last Filed: 05/31/22 03:05> Independent Interpretation I performed an independent interpretation of an: EKG (Normal sinus rhythm, possible U waves, no acute ST elevations or depressions, otherwise normal intervals) <Ilia Davis MD - Last Filed: 05/31/22 03:05> Independent Historian Clinical information obtained from an independent historian. History obtained from or confirmed by: Other (Daughter) <Ilia Davis MD - Last Filed: 05/31/22 03:05> External Record Review External record reviewed: Office record (Primary care office note from today) <Ilia Davis MD - Last Filed: 05/31/22 03:05> Prescription Management I considered prescription management with: Other (IV fluids) <Ilia Davis MD - Last Filed: 05/31/22 03:05> Chronic Conditions Patient?s care impacted by: Other (Dementia) <Ilia Davis MD - Last Filed: 05/31/22 03:05> Discharge Plan Discharge Clinical Impression: Acute dehydration, Alzheimer disease, CKD (chronic kidney disease) <TONEY Howard - Last Filed: 05/30/22 16:55> Patient Disposition: Home, Self-Care <TONEY Howard - Last Filed: 05/30/22 16:55> Instructions: Dehydration (ED), Chronic Kidney Disease (ED), Chronic Kidney Disease Diet (DC), Dementia (ED) <TONEY Howard - Last Filed: 05/30/22 16:55> Additional Instructions: Recommending follow-up with primary care provider and exhaust emissions inspector on Thursday or Thursday. Would recommend repeat metabolic panel to assess kidney function. Additional considerations would include assistance with scheduling outpatient infusions on a regular basis and possible palliative care consultation. <TONEY Howard - Last Filed: 05/30/22 16:55> Prescriptions: No Action hydrochlorothiazide 25 mg tablet 25 mg PO DAILY Qty: 90 8RF atenolol 50 mg tablet 50 mg PO DAILY Qty: 90 8RF trazodone 50 mg tablet 100 mg PO BEDTIME PRN (Reason: insomnia) Qty: 90 8RF ondansetron 4 mg tablet,disintegrating 4 mg PO Q6-8H PRN (Reason: nausea and vomiting) Qty: 7 0RF memantine 5 mg tablet 5 mg PO BID fish oil-dha-epa 1,200-144-216 mg capsule 1 cap PO DAILY multivitamin [Daily Multi-Vitamin] Tablet 1 tab PO DAILY lisinopril 5 mg tablet 5 mg PO DAILY amlodipine 5 mg tablet 5 mg PO DAILY <TONEY Howard - Last Filed: 05/30/22 16:55> Referrals: Julio Cesar Alvarez MD [Primary Care Provider] - 2 days <TONEY Howard - Last Filed: 05/30/22 16:55>
--- NOTE | 2022-05-30 16:54 | ECG_ITS ---
Test Reason : WEAKNESS Blood Pressure : / mmHG Vent. Rate : 070 BPM Atrial Rate : 070 BPM P-R Int : 248 ms QRS Dur : 088 ms QT Int : 400 ms P-R-T Axes : 000 027 030 degrees QTc Int : 432 ms Sinus rhythm with sinus arrhythmia with 1st degree A-V block Otherwise normal ECG When compared with ECG of 16-FEB-2022 03:30, Sinus rhythm has replaced Atrial fibrillation Vent. rate has increased BY 29 BPM Referred By: Misty Sow Electronically Signed By:HEATHER OLIVARES MD
[2022-05-30 17:58] LABS: Influenza A PCR NEGATIVE (Negative); Influenza B PCR NEGATIVE (Negative); Resp Syncy Virus RNA Qual PCR NEGATIVE (Negative); SARS COV2 PCR INHOUSE NEGATIVE (Negative)
--- NOTE | 2022-05-31 00:06 | ED_ITS ---
HPI - General Adult General Chief complaint: General Medical Stated complaint: Dehydration? Sent by Time Seen by Provider: 05/30/22 23:49 Source: patient and family Mode of arrival: ambulatory Limitations: other (Dementia) History of Present Illness HPI narrative: 81-year-old male with advanced dementia presents with possible dehydration. In general, patient is a poor diet very poor intake of of fluids. He may go 3 days with only having a L of smart water with the electrolyte replacement. He does report nausea and vomiting. However the vomiting has never been with this. He has had no fevers or chills. Patient has been eating cookies and other sweets recently. Patient has end-stage renal disease. He has not expressed wishes in no dialysis. He is followed by Nephrology. denies any noted fevers, chills, cough, mucus production, runny nose, diarrhea, constipation, rashes. Patient did have blood work prior to arrival. Related Data Home Medications Medication Instructions Recorded Confirmed memantine 5 mg tablet 5 mg PO BID 02/09/20 05/30/22 fish oil-dha-epa 1,200 mg-144 1 cap PO DAILY 06/18/20 05/30/22 mg-216 mg capsule multivitamin (Daily Multi-Vitamin 1 tab PO DAILY 06/18/20 05/30/22 tablet) amlodipine 5 mg tablet 5 mg PO DAILY 10/05/20 05/30/22 lisinopril 5 mg tablet 5 mg PO DAILY 01/18/21 05/30/22 Previous Rx's Medication Instructions Recorded hydrochlorothiazide 25 mg tablet 25 mg PO DAILY #90 tabs 10/30/20 ondansetron 4 mg disintegrating 4 mg PO Q6-8H PRN nausea and 03/11/21 tablet vomiting #7 tabs atenolol 50 mg tablet 50 mg PO DAILY #90 tabs 05/06/21 trazodone 50 mg tablet 100 mg PO BEDTIME PRN insomnia #90 11/28/21 tabs Allergies Allergy/AdvReac Type Severity Reaction Status Date / Time No Known Allergies Allergy Verified 05/30/22 10:58 Review of Systems Review of Systems: CONSTITUTIONAL: Denies weight loss, fever and chills. HEENT: Denies changes in vision and hearing. RESPIRATORY: Denies SOB and cough. CV: Denies palpitations no CP. GI: Denies abdominal pain,+ nausea, vomiting - diarrhea. : Denies dysuria and urinary frequency. MSK: Denies myalgia and joint pain. SKIN: Denies rash and pruritus. NEUROLOGICAL: Denies headache and syncope. PSYCHIATRIC: Denies recent changes in mood. Denies anxiety and depression. All other ROS are negative unless in HPI PMFSH Past Medical History Medical History Bleeding Dehydration Dementia Elbow pain History of left inguinal hernia Hypertension Surgical History H/O rectal polypectomy History of colonoscopy History of inguinal hernia repair Family History Family History Father Medical history unknown Mother Medical history unknown Brother No problems noted. Son No problems noted. Son No problems noted. Daughter No problems noted. Daughter No problems noted. Daughter No problems noted. Daughter No problems noted. Social History Social History Housing: House Alcohol intake: never Patient Tobacco Use Status: Former Tobacco user e-Cigarette/Vaping Use: Never Used Second Hand Smoke Exposure: No Advance Directives: Yes Advance Directives on File: Yes Advance Directives Date on File: 01/23/21 service: Yes Current occupational status: retired Current occupational exposures/hazards: No Cognitive needs: No Hearing needs: No Vision needs: Yes Physical Exam ED Vital Signs: Vital Signs - 24 hr 05/30/22 16:51 Temperature 98.7 F Pulse Rate 75 Respiratory Rate 18 Blood Pressure 132/91 H Pulse Oximetry 99 Oxygen Delivery Method Room Air BMI result Body Mass Index 20.0 GEN: Well developed, no acute distress, alert HEENT: Normocephalic, atraumatic, normal external ears, nose appears normal, no oropharyngeal edema or exudates Eyes: Normal to appearance Neck: Supple, no lymphadenopathy Respiratory: Talks in complete sentences, no respiratory distress, clear to auscultation bilaterally Cardiovascular: Regular rate and rhythm, no murmurs rubs or gallops Abdomen: Soft, nontender, nondistended, no guarding, no rebound Back: No CVA tenderness Extremities: No clubbing cyanosis or edema Neurologic: No focal neurologic deficits, cranial nerves 2-12 intact, strength is 5/5 bilaterally Skin: No rash Course Course Course Narrative: 81-year-old male with history of dementia, end-stage renal disease not currently on dialysis presents with possible dehydration. Patient is very poor oral intake of liquids. Per he reports nausea and vomiting which is not witnesses. He does take Zofran from time to time. On my evaluation, patient is alert but disoriented. His examination is otherwise benign. Will hydrate patient. Will obtain routine labs reviewed the labs from earlier today. Will re-evaluate patient Reevaluation(s) Reevaluation #1: Reviewed labs from earlier today. There is no hyper or hypokalemia. His creatinine has certainly increased relief previous values. Patient does not wish to have dialysis. Patient is therefore not indicated for admission Time: 00:10 Medical Decision Making Medical Decision Making [facility] Narrative: 81-year-old male with history of dementia, end-stage renal disease not currently on dialysis presents with possible dehydration. Patient is very poor oral intake of liquids. Per he reports nausea and vomiting which is not witnesses. He does take Zofran from time to time. On my evaluation, patient is alert but disoriented. His examination is otherwise benign. Will hydrate patient. Will obtain routine labs reviewed the labs from earlier today. Will re-evaluate patient Differential Diagnosis Differential Diagnoses: The differential diagnosis associated with the presentation includes (Dehydration, hyponatremia, hypokalemia, anemia, hyperkalemia, electrolyte abnormality, worsening kidney function) Dehydration, ESRD Admission/Observation Consideration of admission/observation: Escalation of care including admission/observation considered Lab Data [facility] Lab Attestation statement: I reviewed the patient's lab results. Labs from earlier today. The leukemia or hyperkalemia. He does have progression creatinine. Labs: Lab Results 05/30/22 Range/Units 17:13 Influenza Type A (PCR) NEGATIVE (Negative) Influenza Type B (PCR) NEGATIVE (Negative) RSV RNA Qual (PCR) NEGATIVE (Negative) SARS-CoV-2 RNA (RT-PCR) NEGATIVE (Negative) Independent Interpretation I performed an independent interpretation of an: EKG (Normal sinus rhythm heart rate 70, first-degree AV block, no acute ST elevations or depressions, T-waves noted in V4 through V6.) Independent Historian Clinical information obtained from an independent historian. History obtained from or confirmed by: Other (Child) External Record Review External record reviewed: Office record (Today his primary care visit) Prescription Management I considered prescription management with: Other (IV fluids) Chronic Conditions Patient?s care impacted by: Other (Dementia, ESRD) Discharge Plan Discharge Clinical Impression: Acute dehydration, Alzheimer disease, CKD (chronic kidney disease) Patient Disposition: Home, Self-Care Instructions: Dehydration (ED), Dementia (ED), Chronic Kidney Disease (ED), Chronic Kidney Disease Diet (DC) Additional Instructions: Recommending follow-up with primary care provider and tank hoop bender on Thursday or Thursday. Would recommend repeat metabolic panel to assess kidney function. Additional considerations would include assistance with scheduling outpatient infusions on a regular basis and possible palliative care consultation. Prescriptions: No Action hydrochlorothiazide 25 mg tablet 25 mg PO DAILY Qty: 90 8RF atenolol 50 mg tablet 50 mg PO DAILY Qty: 90 8RF trazodone 50 mg tablet 100 mg PO BEDTIME PRN (Reason: insomnia) Qty: 90 8RF ondansetron 4 mg tablet,disintegrating 4 mg PO Q6-8H PRN (Reason: nausea and vomiting) Qty: 7 0RF memantine 5 mg tablet 5 mg PO BID fish oil-dha-epa 1,200-144-216 mg capsule 1 cap PO DAILY multivitamin [Daily Multi-Vitamin] Tablet 1 tab PO DAILY lisinopril 5 mg tablet 5 mg PO DAILY amlodipine 5 mg tablet 5 mg PO DAILY Referrals: Julio Cesar Alvarez MD [Primary Care Provider] - 2 days
[2022-05-31] MEDS: 0.9 % Sodium Chloride 1,000 ML 999 ML IV (00:48)
[2022-05-31] MEDS: ondansetron HCL 4 MG/2 ML VIAL IVPUSH (00:50)
[2022-05-31 01:18] VITALS: BP 138/87; PULSE 76; RESP 18; TEMP 36.9; O2SAT 99
--- NOTE | 2022-05-31 03:23 | PC.NURSE ---
Pt. resting quietly in bed with IVF running. Pt. asleep for a time and bent his elbow, resulting in a bend to the IV cath. This RN adjusted and positioned IV to facilitate flow. IVF completed and pt dc'd home with caregiver.
== END 2022-05-31 03:26 | disposition home or self-care (01) ==
PROVIDERS: Physician Assistant Medical; Emergency Provider Emergency Medicine; PCP Internal Medicine
DX: E86.0 Dehydration (principal); G30.9 Alzheimer's disease, unspecified; F02.80 Dementia in other diseases classified elsewhere, unspecified severity, without behavioral disturbance, psychotic disturbance, mood disturbance, and anxiety; R53.1 Weakness; R62.7 Adult failure to thrive; Z20.822 Contact with and (suspected) exposure to COVID-19; Z20.828 Contact with and (suspected) exposure to other viral communicable diseases; Z79.899 Other long term (current) drug therapy; Z87.891 Personal history of nicotine dependence
CPT/HCPCS: 0241U; 71046; 93005; 96361; 96374; 99284; J2405